=== PATIENT | female | born 1930 | race Caucasian/White ===

== ENCOUNTER → 2017-12-09 | Day surgery (SDC) | payer MEDICARE ==
[2017-12-07 13:48] LABS: BASOPHILS % 0.2 % (0.0-1.0); EOSINOPHILS % 0.6 % (0.0-6.0); HEMATOCRIT 36.4 % (34.2-44.1); HEMOGLOBIN 12.5 g/dL (12.0-16.0); LYMPHOCYTES # (AUTO) 1.3 (1.0-3.2); LYMPHOCYTES % 27.5 % (18.0-39.1); MEAN CORPUSCULAR HEMOGLOBIN 31.3 pg (28-32); MEAN CORPUSCULAR HGB CONC 34.3 g/dL (31-35); MONOCYTES # (AUTO) 0.6 (0.2-0.8); MONOCYTES % 11.5 % (4.4-11.3); NEUTROPHILS # (AUTO) 2.9 (2.1-6.9); PLATELET COUNT 214 x10e3/uL (140-360)
[~2017-12-09] MED LIST: CRESTOR10 MG PO; FENTANYL CITRATE/PF 100MCG/2 ML INJ ONE; HYOSCYAMINE SULFATE 0.5 MG/ML AMP ONE; LEVOTHYROXINE50 MCG PO; LIDOCAINE HCL 2% LOCAL INJ 5 ML SDV VIAL INJ ONE; LOSARTAN PO; PREMARIN0.625 MG PO; PROPOFOL IV EMULSION 10 MG/ML 50 ML VIAL ONE
--- NOTE | 2017-12-09 14:39 | Operative Report ---
DATE OF PROCEDURE: December 09, 2017 REFERRING PHYSICIAN: Dr. Ced Cruz PROCEDURE PERFORMED: Colonoscopy and polypectomy. INDICATIONS FOR COLONOSCOPY: Colorectal cancer screening and change in bowel habits. MEDICATION: Patient was done under MAC. Please see anesthesiologist's note. PROCEDURE: With the patient in the left lateral decubitus position, the flexible fiberoptic Olympus colonoscope was inserted into the rectum with ease and advanced all the way to the cecum. The scope was then withdrawn slowly. Mucosa overlying the cecum, ascending colon, transverse colon, and descending colon appeared to be within normal limits. Diverticular disease with some retained stool was noted in the sigmoid colon. The rectum grossly appeared to be within normal limits. A minute polyp was hot biopsied from the distal rectum. The scope was then retroflexed. Mucosa around the dentate line grossly appeared to be within normal limits. The scope was then straightened out. It was subsequently withdrawn. Patient tolerated the procedure well. IMPRESSION: 1. Diverticulosis. 2. Rectal polyp, hot biopsied. PLAN: Follow up histology. Initiate high-fiber and low-fat diet. Initiate high-fiber supplement. MiraLAX 17 g in a glass of water once daily. No followup colonoscopy is necessary. Job#: [id number] GIANCARLO
== END | disposition home or self-care (01) ==
LOC: ENDO 11:04
PROVIDERS: ATTEND Internal Medicine Gastroenterology
DX: R19.4 Change in bowel habit (principal); R10.32 Left lower quadrant pain; K62.1 Rectal polyp; K57.30 Diverticulosis of large intestine without perforation or abscess without bleeding; I10 Essential (primary) hypertension; E03.9 Hypothyroidism, unspecified; R63.4 Abnormal weight loss; Z68.25 Body mass index [BMI] 25.0-25.9, adult; Z01.810 Encounter for preprocedural cardiovascular examination; Z01.812 Encounter for preprocedural laboratory examination; Z88.1 Allergy status to other antibiotic agents; Z88.5 Allergy status to narcotic agent
CPT/HCPCS: 36415; 45384; 85025; 88305; 93005; J1980; J2001; 45378

== ENCOUNTER 2018-02-27 14:00 | Outpatient (RCR) | payer MEDICARE ==
[~2018-02-27 14:00] MED LIST changes: -FENTANYL CITRATE/PF 100MCG/2 ML INJ ONE; -HYOSCYAMINE SULFATE 0.5 MG/ML AMP ONE; -LIDOCAINE HCL 2% LOCAL INJ 5 ML SDV VIAL INJ ONE; -PROPOFOL IV EMULSION 10 MG/ML 50 ML VIAL ONE
== END 2018-03-14 ==
LOC: PT 14:00
PROVIDERS: ATTEND Specialist
DX: M16.11 Unilateral primary osteoarthritis, right hip (principal); M70.61 Trochanteric bursitis, right hip; M25.551 Pain in right hip; M62.81 Muscle weakness (generalized); R26.2 Difficulty in walking, not elsewhere classified
CPT/HCPCS: 97110; 97161; G8978; G8979

== ENCOUNTER 2018-06-14 11:02 | Emergency (ER) | payer MEDICARE ==
[~2018-06-14] VITALS: Ht 149.9 cm; Wt 61.2 kg
--- OUTSIDE RECORDS SUMMARY | 2018-06-14 11:05 | XMS REPORT | Continuity of Care Document ---
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 Condition 07/18/2014 [facility] LUMBAR RADICULOPATHY Active 07/18/2014 Condition 07/18/2014 [facility] GASTROENTERITIS Inactive 02/08/2014 Condition 07/18/2014 [facility] Group DIZZINESS Active 02/08/2014 Condition 07/18/2014 [facility] SINUSITIS Inactive 01/29/2014 Condition 07/18/2014 Medical Group VERTIGO Active 01/29/2014 Condition 07/18/2014 [facility] Group CHEST PAIN, ATYPICAL Active 10/24/2013 Condition 07/18/2014 [facility] Group BACK PAIN, RIGHT Active 10/24/2013 Condition 07/18/2014 [facility] Group UPPER RESPIRATORY INFECTION Active 07/31/2013 Condition 07/18/2014 [facility] Group HYPERTENSION Active Condition 07/18/2014 [facility] Group HYPOTHYROIDISM Active Condition 07/18/2014 [facility] Group DYSLIPIDEMIA Active Condition 07/18/2014 [facility] Group DM Active Condition 07/18/2014 [facility] Medications Medication Details Route Status Patient Instructions Ordering Provider Order Date Source TRAMADOL HCL 50 MG TABS one q 6 h prn pain Active 07/18/2014 [facility] MELOXICAM 7.5 MG TABS one bid with food Active 07/10/2014 [facility] METHOCARBAMOL 500 MG TABS one bid Active 07/10/2014 [facility] Group FLONASE 50 MCG/ACT SUSP onew puff bid Active 01/29/2014 [facility] PREDNISONE 10 MG TABS 4 tabs x 2 daus 3 tabs x 2 days 2 tab x 2days 1 tab x 2 days. No Longer Active 01/29/2014 [facility] PREDNISONE 10 MG TABS 4 tabs x 2 daus 3 tabs x 2 days 2 tab x 2days 1 tab x 2 days. No Longer Active 01/29/2014 [facility] ASPIRIN 81 MG TABS 1 tablet twice day Active 10/24/2013 [facility] HYZAAR 100-12.5 MG TABS one daily Active 08/16/2013 [facility] Group ASPIRIN 81 MG TABS Active 07/31/2013 [facility] AMOXICILLIN 500 MG TABS one tid No Longer Active 07/31/2013 [facility] Group BENZONATATE 100 MG CAPS one q 6h prn No Longer Active 07/31/2013 [facility] Group ALL DAY ALLERGY 10 MG CAPS one daily. No Longer Active 07/31/2013 [facility] Group AMOXICILLIN 500 MG TABS one tid No Longer Active 07/31/2013 [facility] Group BENZONATATE 100 MG CAPS one q 6h prn No Longer Active 07/31/2013 [facility] Group BENZONATATE 100 MG CAPS one q 6h prn No Longer Active 07/31/2013 [facility] Group ALL DAY ALLERGY 10 MG CAPS one daily. No Longer Active 07/31/2013 [facility] Group METROCREAM 0.75 % CREA localy hs Active 05/01/2013 [facility] SINGULAIR 10 MG TABS TAKE 1 TABLET BY MOUTH DAILY No Longer Active 02/14/2013 [facility] Group HYZAAR 100-12.5 MG TABS one daily Active 02/14/2013 [facility] COZAAR 50 MG TABS TAKE 1 TABLET BY MOUTH DAILY No Longer Active 02/14/2013 [facility] SINGULAIR 10 MG TABS TAKE 1 TABLET BY MOUTH DAILY No Longer Active 02/14/2013 [facility] Group HYZAAR 100-12.5 MG TABS one daily Active 02/14/2013 [facility] COZAAR 50 MG TABS TAKE 1 TABLET BY MOUTH DAILY No Longer Active 02/14/2013 [facility] Group COZAAR 50 MG TABS TAKE 1 TABLET BY MOUTH DAILY No Longer Active 02/14/2013 [facility] Group CALCIUM + D 600-200 MG-UNIT TABS TAKE 1 TABLET BY MOUTH DAILY Active [facility] CRESTOR 5 MG TABS TAKE 1 TABLET BY MOUTH DAILY Active [facility] SYNTHROID 25 MCG TABS TAKE 1 TABLET BY MOUTH DAILY Active [facility] SYNTHROID 25 MCG TABS TAKE 1 TABLET BY MOUTH DAILY Active [facility] SYNTHROID 25 MCG TABS TAKE 1 TABLET BY MOUTH DAILY Active [facility] CRESTOR 5 MG TABS TAKE 1 TABLET BY MOUTH DAILY Active [facility] SYNTHROID 25 MCG TABS TAKE 1 TABLET BY MOUTH DAILY Active [facility] Allergies, Adverse Reactions, Alerts Substance Category Reaction Severity Reaction type Status Date Reported Comments Source KEFLEX Drug allergy KEFLEX 08/01/2013 [facility] CODEINE Drug allergy CODEINE [facility] Immunizations Immunization Date Given Site Status Last Updated Comments Source Results Order Name Results Value Reference Range Date Interpretation Comments Source Chemistry HGBA1C 5.7 % - 5.6 10/24/2013 [facility] Hematology HGB 13.3 g/dL 12.0 - 16.0 10/24/2013 [facility] Hematology HCT 39.8 % 36.0 - 48.0 10/24/2013 [facility] Hematology PLATELETS 201 K/CMM /mm3 133 - 450 10/24/2013 [facility] Chemistry HGBA1C 5.7 % - 5.6 03/26/2013 [facility] Chemistry CHOLESTEROL 190 mg/dl - 199 03/26/2013 [facility] Chemistry TRIGLYCERIDE 147 mg/dl - 149 03/26/2013 [facility] Chemistry HGBA1C 5.7 % - 5.6 03/26/2013 [facility] Chemistry CHOLESTEROL 190 mg/dl - 199 03/26/2013 [facility] Chemistry TRIGLYCERIDE 147 mg/dl - 149 03/26/2013 [facility] Chemistry HDL 68 mg/dl >=61 03/26/2013 [facility] Chemistry LDL 93 mg/dl - 99 03/26/2013 [facility] Chemistry BUN 16 mg/dL 7 - 22 03/26/2013 [facility] Chemistry CREATININE 1.0 mg/dL 0.5 - 1.4 03/26/2013 [facility] Chemistry SODIUM 139 MEQ/L mmol/L 135 - 145 03/26/2013 [facility] Chemistry POTASSIUM 4.3 MEQ/L mmol/L 3.5 - 5.1 03/26/2013 [facility] Chemistry CALCIUM 9.3 mg/dL 8.5 - 10.5 03/26/2013 [facility] Chemistry TSH 3.160 uIU/mL 0.360 - 3.740 03/26/2013 [facility] Chemistry HGBA1C 5.7 % - 5.6 02/15/2013 [facility] Chemistry HGBA1C 5.7 % - 5.6 02/15/2013 [facility] Vital Signs Vital Sign Value Date Comments Source Height 59 07/18/2014 [facility] Temperature Oral (F) 97.9 F 07/18/2014 [facility] Heart Rate 80 07/18/2014 [facility] Weight 135 07/18/2014 [facility] Systolic (mm Hg) 136 07/18/2014 [facility] Diastolic (mm Hg) 70 07/18/2014 [facility] Weight 135 02/08/2014 [facility] Systolic (mm Hg) 122 02/08/2014 [facility] Diastolic (mm Hg) 70 02/08/2014 [facility] Weight 135 01/29/2014 [facility] Temperature Oral (F) 97.5 F 01/29/2014 [facility] Heart Rate 80 01/29/2014 [facility] Systolic (mm Hg) 128 01/29/2014 [facility] Diastolic (mm Hg) 82 01/29/2014 [facility] Weight 136 10/24/2013 [facility] Temperature Oral (F) 96.6 F 10/24/2013 [facility] Heart Rate 72 10/24/2013 [facility] Systolic (mm Hg) 134 10/24/2013 [facility] Diastolic (mm Hg) 80 10/24/2013 [facility] Weight 135 07/31/2013 [facility] Temperature Oral (F) 98.1 F 07/31/2013 [facility] Heart Rate 84 07/31/2013 [facility] Systolic (mm Hg) 130 07/31/2013 [facility] Diastolic (mm Hg) 80 07/31/2013 [facility] Weight 134 03/26/2013 [facility] Temperature Oral (F) 97.5 F 03/26/2013 [facility] Heart Rate 76 03/26/2013 [facility] Systolic (mm Hg) 134 03/26/2013 [facility] Diastolic (mm Hg) 82 03/26/2013 [facility] Height 59 03/26/2013 [facility] Weight 140 02/14/2013 [facility] Heart Rate 77 02/14/2013 [facility] Systolic (mm Hg) 200 02/14/2013 [facility] Diastolic (mm Hg) 90 02/14/2013 [facility] Encounters Location Location Details Encounter Type Encounter Number Reason For Visit Attending Provider ADM Date DC Date Status Source [facility] Lab Report [id number] Dominic Rock MD 02/14/2013 02/14/2013 [facility] [id number] Dominic Rock MD 02/14/2013 02/14/2013 [facility] [place] Office Visit [id number] Dominic Rock MD 03/26/2013 03/26/2013 [facility] [place] Lab Report [id number] Dominic Rock MD 03/26/2013 03/26/2013 [facility] [place] Office Visit [id number] Dominic Rock MD 07/31/2013 07/31/2013 [facility] [place] Office Visit [id number] Dominic Rock MD 10/24/2013 10/24/2013 [facility] [place] Lab Report [id number] Dominic Rock MD 10/24/2013 10/24/2013 [facility] [place] Office Visit [id number] Dominic Rock MD 01/29/2014 01/29/2014 [facility] [place] Office Visit [id number] Dominic Rock MD 02/08/2014 02/08/2014 [facility] [place] Office Visit [id number] Dominic Rock MD 07/18/2014 07/18/2014 [facility] Procedures Procedure Code Date Perfomer Comments Source mammogram 59588 04/15/2013 Complete [facility] mammogram 84679 11/05/2009 Done [facility] mammogram 54158 11/05/2009 Completed [facility] bone density 4002.65 02/07/2008 Done [facility] bone density 4002.65 02/07/[address] [facility]
--- OUTSIDE RECORDS SUMMARY | 2018-06-14 11:05 | XMS REPORT | Continuity of Care Document ---
Author Author [facility] Organization [facility] Address Unknown Phone Unavailable Care Team Providers Care Athletics Teacher Name Role Phone MD Shweta, Dominic Unavailable Insurance Providers Payer name Policy type / Coverage type Policy ID Covered green party ID Policy Reza [place] [employer] AARP HEALTHCARE OPTIONS (MEDICARE SUPPLEMENT [place]: [place] H5 AARP HEALTHCARE OPTIONS (MEDICARE SUPPLEMENT AARP HEALTHCARE OPTIONS (MEDICARE SUPPLEMENT [place] H5 AARP HEALTHCARE OPTIONS (MEDICARE SUPPLEMENT Encounters Encounter Performer Location Date Office Visit Dominic Rock MD [facility] Jul 31, 2013 Allergies, Adverse Reactions, Alerts Type Substance Reaction Status Drug allergy CODEINE VIOLENTLY DIZZY Active Drug allergy KEFLEX Active Problems Problem Effective Dates Problem Status HYPERTENSION Active HYPOTHYROIDISM Active DYSLIPIDEMIA Active DM Active UPPER RESPIRATORY INFECTION Jul 31, 2013 Active Procedures Date Description Comments Feb 07, 2008 bone density Done Nov 05, 2009 mammogram Done Nov 05, 2009 mammogram Completed Feb 07, 2008 bone density Complete std dev Mar 26, 2013 smoking status never smoker Medications Medication Instructions Start Date Status CALCIUM + D 600-200 MG-UNIT TABS TAKE 1 TABLET BY MOUTH DAILY Active CRESTOR 5 MG TABS TAKE 1 TABLET BY MOUTH DAILY Active SYNTHROID 25 MCG TABS TAKE 1 TABLET BY MOUTH DAILY Active SINGULAIR 10 MG TABS TAKE 1 TABLET BY MOUTH DAILY Inactive HYZAAR 100-12.5 MG TABS one daily Feb 14, 2013 Active COZAAR 50 MG TABS TAKE 1 TABLET BY MOUTH DAILY Inactive METROCREAM 0.75 % CREA localy hs May 01, 2013 Active ASPIRIN 81 MG TABS Jul 31, 2013 Active AMOXICILLIN 500 MG TABS one tid Jul 31, 2013 Active BENZONATATE 100 MG CAPS one q 6h prn Jul 31, 2013 Active ALL DAY ALLERGY 10 MG CAPS one daily. Jul 31, 2013 Active Vital Signs Date Description Test Result Feb 14, 2013 weight E&M - 3141-9 WEIGHT 140 lb Feb 14, 2013 pulse rate E&M - 8867-4 PULSE RATE 77 /min Feb 14, 2013 blood pressure, systolic - 8480-6 BP SYSTOLIC 200 mm Hg Feb 14, 2013 blood pressure, diastolic - 8462-4 BP DIASTOLIC 90 mm Hg Mar 26, 2013 weight E&M - 3141-9 WEIGHT 134 lb Mar 26, 2013 temperature E&M TEMPERATURE 97.5 deg f Mar 26, 2013 pulse rate E&M - 8867-4 PULSE RATE 76 /min Mar 26, 2013 blood pressure, systolic - 8480-6 BP SYSTOLIC 134 mm Hg Mar 26, 2013 blood pressure, diastolic - 8462-4 BP DIASTOLIC 82 mm Hg Mar 26, 2013 height E&M - 8302-2 HEIGHT 59 in Jul 31, 2013 weight E&M - 3141-9 WEIGHT 135 lb Jul 31, 2013 temperature E&M TEMPERATURE 98.1 deg f Jul 31, 2013 pulse rate E&M - 8867-4 PULSE RATE 84 /min Jul 31, 2013 blood pressure, systolic - 8480-6 BP SYSTOLIC 130 mm Hg Jul 31, 2013 blood pressure, diastolic - 8462-4 BP DIASTOLIC 80 mm Hg Results Date Description Test Name Value Reference Interpretation Status Feb 14, 2013 hemoglobin A1C, blood, as % of total hemoglobin HGBA1C 5.7 % <=5.6 High Mar 26, 2013 hemoglobin A1C, blood, as % of total hemoglobin HGBA1C 5.7 % <=5.6 High Mar 26, 2013 cholesterol, serum CHOLESTEROL 190 mg/dl <=199 Mar 26, 2013 triglyceride, serum, fasting TRIGLYCERIDE 147 mg/dl <=149 Mar 26, 2013 HDL cholesterol, serum HDL 68 mg/dl >=61 Mar 26, 2013 LDL cholesterol, serum LDL 93 mg/dl <=99 Mar 26, 2013 urea nitrogen, blood BUN 16 mg/dL 7-Mar 26, 2013 creatinine, serum CREATININE 1.0 mg/dL 0.5-1.4 Mar 26, 2013 sodium, serum SODIUM 139 MEQ/L mmol/L 135-145 Mar 26, 2013 potassium, serum POTASSIUM 4.3 MEQ/L mmol/L 3.5-5.1 Mar 26, 2013 calcium, serum CALCIUM 9.3 mg/dL 8.5-10.5 Mar 26, 2013 thyroid stimulating hormone, serum TSH 3.160 uIU/mL 0.360-3.740
--- OUTSIDE RECORDS SUMMARY | 2018-06-14 11:05 | XMS REPORT | Continuity of Care Document ---
Author Author [facility] Organization [facility] Address Unknown Phone Unavailable Care Team Providers Care Fence Installer Name Role Phone MD Shweta, Dominic WHITAKER Unavailable Insurance Providers Payer name Policy type / Coverage type Policy ID Covered libertarian ID Policy Reza [place] SOLUTIONS AARP HEALTHCARE OPTIONS (MEDICARE SUPPLEMENT [place]: [place] AARP HEALTHCARE OPTIONS (MEDICARE SUPPLEMENT AARP HEALTHCARE OPTIONS (MEDICARE SUPPLEMENT [place]: [place] AARP HEALTHCARE OPTIONS (MEDICARE SUPPLEMENT Encounters Encounter Performer Location Date Lab Report Dominic Rock MD [facility] Oct 24, 2013 Allergies, Adverse Reactions, Alerts Type Substance Reaction Status Drug allergy CODEINE VIOLENTLY DIZZY Active Drug allergy KEFLEX Active Problems Problem Effective Dates Problem Status HYPERTENSION Active HYPOTHYROIDISM Active DYSLIPIDEMIA Active DM Active UPPER RESPIRATORY INFECTION Jul 31, 2013 Active CHEST PAIN, ATYPICAL Oct 24, 2013 Active BACK PAIN, RIGHT Oct 24, 2013 Active Procedures Date Description Comments Feb [...] TAKE 1 TABLET BY MOUTH DAILY Inactive COZAAR 50 MG TABS TAKE 1 TABLET BY MOUTH DAILY Inactive METROCREAM 0.75 % CREA localy hs May 01, 2013 Active ALL DAY ALLERGY 10 MG CAPS one daily. Jul 31, 2013 Active HYZAAR 100-12.5 MG TABS one daily Aug 16, 2013 Active AMOXICILLIN 500 MG TABS one tid Jul 31, 2013 Inactive BENZONATATE 100 MG CAPS one q 6h prn Jul 31, 2013 Inactive ASPIRIN 81 MG TABS 1 tablet twice day Oct 24, 2013 Active Vital Signs Date Description Test [...] - 8462-4 BP DIASTOLIC 80 mm Hg Oct 24, 2013 weight E&M - 3141-9 WEIGHT 136 lb Oct 24, 2013 temperature E&M TEMPERATURE 96.6 deg f Oct 24, 2013 pulse rate E&M - 8867-4 PULSE RATE 72 /min Oct 24, 2013 blood pressure, systolic - 8480-6 BP SYSTOLIC 134 mm Hg Oct 24, 2013 blood pressure, diastolic - 8462-4 BP DIASTOLIC 80 mm Hg Results Date Description Test Name Value Reference Interpretation Status Oct 24, 2013 hemoglobin, blood HGB 13.3 g/dL 12.0-16.0 Oct 24, 2013 hematocrit, blood HCT 39.8 % 36.0-48.0 Oct 24, 2013 platelet count PLATELETS 201 K/CMM /mm3 133-450 Feb 14, 2013 hemoglobin A1C, blood, as [...] stimulating hormone, serum TSH 3.160 uIU/mL 0.360-3.740 Oct 24, 2013 hemoglobin A1C, blood, as % of total hemoglobin HGBA1C 5.7 % <=5.6 High
--- OUTSIDE RECORDS SUMMARY | 2018-06-14 11:05 | XMS REPORT | Continuity of Care Document ---
Author Author [facility] Organization [facility] Address Unknown Phone Unavailable Care Team Providers Care [place] Name Role Phone MD Shweta, Dominic Unavailable Insurance Providers Payer name Policy type / Coverage type Policy ID Covered green party ID Policy [place]za [place] [employer]UT[employer] AARP HEALTHCARE OPTIONS (MEDICARE SUPPLEMENT [place]: [place]OVIT[place] [employer] AARP HEALTHCARE OPTIONS (MEDICARE SUPPLEMENT AARP HEALTHCARE OPTIONS (MEDICARE SUPPLEMENT [place]: [place]OVIT[place] [employer] AARP HEALTHCARE OPTIONS (MEDICARE SUPPLEMENT Encounters Encounter Performer Location Date Office Visit Dominic Rock MD [facility] Oct 24, 2013 Allergies, Adverse [...]
--- OUTSIDE RECORDS SUMMARY | 2018-06-14 11:05 | XMS REPORT | Continuity of Care Document ---
Author Author [facility] Organization [facility] Address Unknown Phone Unavailable Care Team Providers Care Wide Area Network Engineer Name Role Phone MD Shweta, Dominic PP Unavailable Insurance Providers Payer name Policy type / Coverage type Policy ID Covered constitution party ID Policy Reza [place]: [place] [employer] AARP HEALTHCARE OPTIONS (MEDICARE SUPPLEMENT [place]: [place]OVITAS [employer] AARP HEALTHCARE OPTIONS (MEDICARE SUPPLEMENT AARP HEALTHCARE OPTIONS (MEDICARE SUPPLEMENT Encounters Encounter Performer Location Date Lab Report Dominic Rock MD [facility] Mar 26, 2013 Allergies, Adverse Reactions, Alerts Type Substance Reaction Status Drug allergy CODEINE VIOLENTLY DIZZY Active Problems Problem Effective Dates Problem Status HYPERTENSION Active HYPOTHYROIDISM Active DYSLIPIDEMIA Active DM Active Procedures Date Description Comments Feb 07, [...] TAKE 1 TABLET BY MOUTH DAILY Inactive Vital Signs Date Description Test Result Feb [...] height E&M - 8302-2 HEIGHT 59 in Results Date Description Test Name Value Reference [...]
--- OUTSIDE RECORDS SUMMARY | 2018-06-14 11:05 | XMS REPORT | Continuity of Care Document ---
Author Author [facility] Organization [facility] Address Unknown Phone Unavailable Care Team Providers Care Operating Theatre Technician Name Role Phone MD Shweta, Dominic Unavailable Insurance Providers Payer name Policy type / Coverage type Policy ID Covered alliance party ID Policy Reza [place] [employer]UT[place] AARP HEALTHCARE OPTIONS (MEDICARE SUPPLEMENT [place]: [place]OVITAS [employer] AARP HEALTHCARE OPTIONS (MEDICARE SUPPLEMENT AARP HEALTHCARE OPTIONS (MEDICARE SUPPLEMENT Encounters Encounter Performer Location Date Office Visit Dominic Rock MD [facility] Mar 26, 2013 Allergies, Adverse Reactions, Alerts [...]
--- OUTSIDE RECORDS SUMMARY | 2018-06-14 11:05 | XMS REPORT | Continuity of Care Document ---
Author Author [facility] Organization [facility] Address Unknown Phone Unavailable Care Team Providers Care Tissue Inserter Name Role Phone MD Shweta, Dominic WHITAKER Unavailable Insurance Providers Payer name Policy type / Coverage type Policy ID Covered green party ID Policy Reza [place] [employer]UT[employer] AARP HEALTHCARE OPTIONS (MEDICARE SUPPLEMENT [place]: [place]OVITAS [employer] AARP HEALTHCARE OPTIONS (MEDICARE SUPPLEMENT AARP HEALTHCARE OPTIONS (MEDICARE SUPPLEMENT MED[place]: [place]OVITAS SergeMD AARP HEALTHCARE OPTIONS (MEDICARE SUPPLEMENT Encounters Encounter Performer Location Date Office Visit Dominic Rock MD [facility] Jan 29, 2014 Allergies, Adverse Reactions, Alerts Type Substance Reaction Status Drug allergy CODEINE VIOLENTLY DIZZY Active Drug allergy KEFLEX Active Problems Problem Effective Dates Problem Status HYPERTENSION Active HYPOTHYROIDISM Active DYSLIPIDEMIA Active DM Active UPPER RESPIRATORY INFECTION Jul 31, 2013 Active CHEST PAIN, ATYPICAL Oct 24, 2013 Active BACK PAIN, RIGHT Oct 24, 2013 Active SINUSITIS Jan 29, 2014 Active VERTIGO Jan 29, 2014 Active Procedures Date Description Comments Feb 07, 2008 bone density Done Nov 05, 2009 mammogram Done Nov 05, 2009 mammogram Completed Feb 07, 2008 bone density Complete std dev Mar 26, 2013 smoking status never smoker Jan 29, 2014 smoking status Never smoker Apr 15, 2013 mammogram Complete Medications Medication Instructions Start Date Status CALCIUM [...] CREA localy hs May 01, 2013 Active HYZAAR 100-12.5 MG TABS one daily Aug 16, 2013 Active AMOXICILLIN 500 MG TABS one tid Jul 31, 2013 Inactive BENZONATATE 100 MG CAPS one q 6h prn Jul 31, 2013 Inactive ASPIRIN 81 MG TABS 1 tablet twice day Oct 24, 2013 Active ALL DAY ALLERGY 10 MG CAPS one daily. Jul 31, 2013 Inactive FLONASE 50 MCG/ACT SUSP onew puff bid Jan 29, 2014 Active PREDNISONE 10 MG TABS 4 tabs x 2 daus 3 tabs x 2 days 2 tab x 2days 1 tab x 2 days. Jan 29, 2014 Active Vital Signs Date Description Test Result Feb 14, 2013 weight E&M WEIGHT 140 lb Feb 14, 2013 pulse rate E&M PULSE RATE 77 /min Feb 14, 2013 blood pressure, systolic BP SYSTOLIC 200 mm Hg Feb 14, 2013 blood pressure, diastolic BP DIASTOLIC 90 mm Hg Mar 26, 2013 weight E&M WEIGHT 134 lb Mar 26, 2013 temperature E&M TEMPERATURE 97.5 deg f Mar 26, 2013 pulse rate E&M PULSE RATE 76 /min Mar 26, 2013 blood pressure, systolic BP SYSTOLIC 134 mm Hg Mar 26, 2013 blood pressure, diastolic BP DIASTOLIC 82 mm Hg Mar 26, 2013 height E&M HEIGHT 59 in Jul 31, 2013 weight E&M WEIGHT 135 lb Jul 31, 2013 temperature E&M TEMPERATURE 98.1 deg f Jul 31, 2013 pulse rate E&M PULSE RATE 84 /min Jul 31, 2013 blood pressure, systolic BP SYSTOLIC 130 mm Hg Jul 31, 2013 blood pressure, diastolic BP DIASTOLIC 80 mm Hg Oct 24, 2013 weight E&M WEIGHT 136 lb Oct 24, 2013 temperature E&M TEMPERATURE 96.6 deg f Oct 24, 2013 pulse rate E&M PULSE RATE 72 /min Oct 24, 2013 blood pressure, systolic BP SYSTOLIC 134 mm Hg Oct 24, 2013 blood pressure, diastolic BP DIASTOLIC 80 mm Hg Jan 29, 2014 weight E&M WEIGHT 135 lb Jan 29, 2014 temperature E&M TEMPERATURE 97.5 deg f Jan 29, 2014 pulse rate E&M PULSE RATE 80 /min Jan 29, 2014 blood pressure, systolic BP SYSTOLIC 128 mm Hg Jan 29, 2014 blood pressure, diastolic BP DIASTOLIC 82 mm Hg Results Date Description Test Name [...] 2013 urea nitrogen, blood BUN 16 mg/dL 7-22 Mar 26, 2013 creatinine, serum CREATININE 1.0 mg/dL [...]
--- OUTSIDE RECORDS SUMMARY | 2018-06-14 11:05 | XMS REPORT | Continuity of Care Document ---
Author Author [facility] Organization [facility] Address Unknown Phone Unavailable Care Team Providers Care Supervisor Pressing Department Name Role Phone MD Shweta, Dominic WHITAKER Unavailable Insurance Providers Payer name Policy type / Coverage type Policy ID Covered alliance party ID Policy Reza [place] [employer] AARP HEALTHCARE OPTIONS (MEDICARE SUPPLEMENT [place]: [place]OV[place] [employer] AARP HEALTHCARE OPTIONS (MEDICARE SUPPLEMENT AARP HEALTHCARE OPTIONS (MEDICARE SUPPLEMENT [place]: [employer] AARP HEALTHCARE OPTIONS (MEDICARE SUPPLEMENT Encounters Encounter Performer Location Date Office Visit Dominic Rock MD [facility] Feb 08, 2014 Allergies, Adverse Reactions, Alerts Type Substance [...] 2014 Active VERTIGO Jan 29, 2014 Active GASTROENTERITIS Feb 08, 2014 Active DIZZINESS Feb 08, 2014 Active Procedures Date Description Comments Feb 07, 2008 bone density Done Nov 05, 2009 mammogram Done Nov 05, 2009 mammogram Completed Feb 07, 2008 bone density Complete std dev Mar 26, 2013 smoking status never smoker Jan 29, 2014 smoking status Never smoker Apr 15, 2013 mammogram Complete Feb 08, 2014 smoking status Never smoker Medications Medication Instructions Start Date Status [...] tab x 2 days. Jan 29, 2014 Inactive Vital Signs Date Description Test Result [...] pressure, diastolic BP DIASTOLIC 82 mm Hg Feb 08, 2014 weight E&M WEIGHT 135 lb Feb 08, 2014 blood pressure, systolic BP SYSTOLIC 122 mm Hg Feb 08, 2014 blood pressure, diastolic BP DIASTOLIC 70 mm Hg Results Date Description Test Name [...]
--- OUTSIDE RECORDS SUMMARY | 2018-06-14 11:05 | XMS REPORT | Continuity of Care Document ---
Author Author [facility] Organization [facility] Address Unknown Phone Unavailable Care Team Providers Care Truck Spotter Name Role Phone MD Shweta, Dominic WHITAKER Unavailable Insurance Providers Payer name Policy type / Coverage type Policy ID Covered democrat ID Policy Rzea [place] [employer] AARP HEALTHCARE OPTIONS (MEDICARE SUPPLEMENT [place]: [place] [employer] AARP HEALTHCARE OPTIONS (MEDICARE SUPPLEMENT AARP HEALTHCARE OPTIONS (MEDICARE SUPPLEMENT [place] AARP HEALTHCARE OPTIONS (MEDICARE SUPPLEMENT Encounters Encounter Performer Location Date Office Visit Dominic Rock MD [facility] Jul 18, 2014 Allergies, Adverse Reactions, Alerts Type Substance Reaction Status Drug allergy CODEINE VIOLENTLY DIZZY Active Drug allergy KEFLEX Active Problems Problem Effective Dates Problem Status HYPERTENSION Active HYPOTHYROIDISM Active DYSLIPIDEMIA Active DM Active UPPER RESPIRATORY INFECTION Jul 31, 2013 Active CHEST PAIN, ATYPICAL Oct 24, 2013 Active BACK PAIN, RIGHT Oct 24, 2013 Active SINUSITIS Jan 29, 2014 Inactive VERTIGO Jan 29, 2014 Active GASTROENTERITIS Feb 08, 2014 Inactive DIZZINESS Feb 08, 2014 Active SCIATICA, 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 Jan 29, 2014 Inactive MELOXICAM 7.5 MG TABS one bid with food Jul 10, 2014 Active METHOCARBAMOL 500 MG TABS one bid Jul 10, 2014 Active TRAMADOL HCL 50 MG TABS one q 6 h prn pain Jul 18, 2014 Active Vital Signs Date Description Test [...] - 8462-4 BP DIASTOLIC 80 mm Hg Jan 29, 2014 weight E&M - 3141-9 WEIGHT 135 lb Jan 29, 2014 temperature E&M TEMPERATURE 97.5 deg f Jan 29, 2014 pulse rate E&M - 8867-4 PULSE RATE 80 /min Jan 29, 2014 blood pressure, systolic - 8480-6 BP SYSTOLIC 128 mm Hg Jan 29, 2014 blood pressure, diastolic - 8462-4 BP DIASTOLIC 82 mm Hg Feb 08, 2014 weight E&M - 3141-9 WEIGHT 135 lb Feb 08, 2014 blood pressure, systolic - 8480-6 BP SYSTOLIC 122 mm Hg Feb 08, 2014 blood pressure, diastolic - 8462-4 BP DIASTOLIC 70 mm Hg Jul 18, 2014 height E&M - 8302-2 HEIGHT 59 in Jul 18, 2014 temperature E&M TEMPERATURE 97.9 deg f Jul 18, 2014 pulse rate E&M - 8867-4 PULSE RATE 80 /min Jul 18, 2014 weight E&M - 3141-9 WEIGHT 135 lb Jul 18, 2014 blood pressure, systolic - 8480-6 BP SYSTOLIC 136 mm Hg Jul 18, 2014 blood pressure, diastolic - 8462-4 BP DIASTOLIC 70 mm Hg Results Date [...]
--- OUTSIDE RECORDS SUMMARY | 2018-06-14 11:05 | XMS REPORT | Continuity of Care Document ---
Author Author [facility] Organization [facility] Address Unknown Phone Unavailable Care Team Providers Care Bridge Repairer Name Role Phone MD Shweta, Dominic WHITAKER Unavailable Insurance Providers Payer name Policy type / Coverage type Policy ID Covered libertarian ID Policy Reza [place] [employer] AARP HEALTHCARE OPTIONS (MEDICARE SUPPLEMENT Encounters Encounter Performer Location Date Office Visit Domniic Rock MD [facility] Feb 14, 2013 Allergies, Adverse Reactions, Alerts Type Substance Reaction Status Drug allergy CODEINE VIOLENTLY DIZZY Active Problems Problem Effective Dates Problem Status HYPERTENSION Active HYPOTHYROIDISM Active DYSLIPIDEMIA Active DM Active Procedures Date Description Comments Feb 07, 2008 bone density Done Nov 05, 2009 mammogram Done Nov 05, 2009 mammogram Completed Feb 07, 2008 bone density Complete std dev Medications Medication Instructions Start Date Status CALCIUM [...] - 8462-4 BP DIASTOLIC 90 mm Hg Results Date Description Test Name Value Reference Interpretation Status Feb 14, 2013 hemoglobin A1C, blood, as % of total hemoglobin HGBA1C 5.7 % <=5.6 High
--- OUTSIDE RECORDS SUMMARY | 2018-06-14 11:05 | XMS REPORT | Continuity of Care Document ---
Author Author [facility] Organization [facility] Address Unknown Phone Unavailable Care Team Providers Care Front Window Cashier Name Role Phone MD Shweta, Dominic WHITAKER Unavailable Insurance Providers Payer name Policy type / Coverage type Policy ID Covered libertarian ID Policy Reza [place] [id number] AARP HEALTHCARE OPTIONS (MEDICARE SUPPLEMENT Encounters Encounter Performer Location Date Lab Report Dominic Rock MD [facility] Feb 14, 2013 Allergies, Adverse Reactions, Alerts [...]
[2018-06-14 11:51] VITALS: BP 151/78
== END 2018-06-14 11:58 | disposition home or self-care (01) ==
LOC: FSED 11:02
DX: R10.30 Lower abdominal pain, unspecified (principal); N39.0 Urinary tract infection, site not specified; I10 Essential (primary) hypertension; E78.5 Hyperlipidemia, unspecified; E03.9 Hypothyroidism, unspecified
CPT/HCPCS: 87086; 99283

== ENCOUNTER 2018-06-27 15:06 | Emergency (ER) | payer MEDICARE, OTHER ==
[~2018-06-27] VITALS: Ht 149.9 cm; Wt 59.0 kg
--- OUTSIDE RECORDS SUMMARY | 2018-06-27 15:11 | XMS REPORT | Continuity of Care Document ---
Author Author [facility] Address Unknown Phone Unavailable Problems Problem [...] TABS one daily Active 08/16/2013 [facility] AMOXICILLIN 500 MG TABS one tid No Longer Active 07/31/2013 [facility] BENZONATATE 100 MG CAPS one q 6h prn No Longer Active 07/31/2013 [facility] ALL DAY ALLERGY 10 MG CAPS one daily. No Longer Active 07/31/2013 [facility] ASPIRIN 81 MG TABS Active [...] Medical Group CODEINE Drug allergy CODEINE [facility] Immunizations Immunization Date Given Site Status Last Updated Comments Source Results Order Name Results Value Reference Range Date Interpretation Comments Source Chemistry HGBA1C 5.7 % - 5.6 10/24/2013 [facility] Hematology HGB 13.3 g/dL 12.0 - 16.0 10/24/2013 Medical [facility] Hematology HCT 39.8 % 36.0 - 48.0 10/24/2013 [facility] Hematology PLATELETS 201 K/CMM /mm3 133 - 450 10/24/2013 [facility] Chemistry HGBA1C 5.7 % - 5.6 03/26/2013 [facility] Chemistry CHOLESTEROL 190 mg/dl - 199 03/26/2013 [facility] Chemistry TRIGLYCERIDE 147 mg/dl - 149 03/26/2013 Medical [facility] Chemistry HDL 68 mg/dl >=61 03/26/2013 [facility] Chemistry LDL 93 mg/dl - 99 03/26/2013 [facility] Chemistry BUN 16 mg/dL 7 - 22 03/26/2013 [facility] Chemistry CREATININE 1.0 mg/dL 0.5 - 1.4 03/26/2013 [facility] Chemistry SODIUM 139 MEQ/L mmol/L 135 - 145 03/26/2013 [facility] Chemistry POTASSIUM 4.3 MEQ/L mmol/L 3.5 - 5.1 03/26/2013 [facility] Chemistry CALCIUM 9.3 mg/dL 8.5 - 10.5 03/26/2013 Medical [facility] Chemistry TSH 3.160 uIU/mL 0.360 - 3.740 03/26/2013 Medical [facility] Chemistry HGBA1C 5.7 % - 5.6 03/26/2013 [facility] Chemistry CHOLESTEROL 190 mg/dl - 199 03/26/2013 [facility] Chemistry TRIGLYCERIDE 147 mg/dl - 149 03/26/2013 Medical [facility] Chemistry HGBA1C 5.7 % - 5.6 02/15/2013 [facility] Chemistry HGBA1C 5.7 % - 5.6 02/15/2013 Medical [facility] Vital Signs Vital Sign Value Date Comments Source Height 59 07/18/2014 Medical [facility] Temperature Oral (F) 97.9 F 07/18/2014 [facility] Heart Rate 80 07/18/2014 Medical Group Weight 135 07/18/2014 Medical [facility] Systolic (mm Hg) 136 07/18/2014 Medical Group [...] Provider ADM Date DC Date Status Source [facility] Lab Report [id number] Dominic Rock MD 02/14/2013 02/14/2013 [facility] [id number] Dominic Rock MD 02/14/2013 02/14/2013 Medical Group [facility] [place] Office Visit [id number] Dominic Rock MD 03/26/2013 03/26/2013 [facility] [place] Lab Report [id number] Dominic Rock MD 03/26/2013 03/26/2013 [facility] [place] Office Visit [id number] Dominic Rock MD 07/31/2013 07/31/2013 [facility] [place] Office Visit [id number] Dominic Rock MD 10/24/2013 10/24/2013 [facility] [place] Lab Report [id number] Dominic Rock MD 10/24/2013 10/24/2013 [facility] [place] Office Visit [id number] Dominic Rock MD 01/29/2014 01/29/2014 [facility] [place] Office Visit [id number] Dominic Rock MD 02/08/2014 02/08/2014 [facility] [place] Office Visit [id number] Dominic Rock MD 07/18/2014 07/18/2014 [facility] Procedures Procedure Code Date Perfomer Comments Source mammogram 45189 04/15/2013 Complete Medical [facility] mammogram 54857 11/05/2009 Done [facility] mammogram 35854 11/05/2009 Completed [facility] bone density 4002.65 02/07/2008 Done [facility] bone density 4002.65 02/07/[address] dev [facility]
[2018-06-27 15:35] VITALS: BP 142/71
== END 2018-06-27 16:00 | disposition home or self-care (01) ==
LOC: FSED 15:06
DX: R35.0 Frequency of micturition (principal)
CPT/HCPCS: 81003; 99282

== ENCOUNTER 2020-05-20 09:17 | Observation (INO) | payer MEDICARE, OTHER ==
[2020-05-19 20:00] VITALS: BP 133/53
[~2020-05-20] VITALS: Ht 149.9 cm; Wt 61.2 kg
[~2020-05-20 09:17] MED LIST changes: +ASPIRIN81 MG PO; +BUPIVACAINE 7.5MG/ML /DEXTROSE 82.5MG/ML 2 ML AMP INJ ONE; +LOSARTAN/HCTZ PO; +ROPIVACAINE 246.25 MG, EPINEPHRINE HCL 1:1000 1ML 0.5 MG, CLONIDINE HCL 0.08 MG, KETORO... INJ ONE
[2020-05-20] MEDS ORDERED: DEXAMETHASONE SOD PHOS INJ 4 MG/ML VIAL ONE (09:50)
[2020-05-20] MEDS ORDERED: CELECOXIB 200 MG CAP ONE (09:50)
[2020-05-20] MEDS ORDERED: GABAPENTIN 300 MG CAP ONE (09:51)
[2020-05-20] MEDS ORDERED: CLINDAMYCIN PHOS 900MG/ 50ML 50 ML IV ONE (09:51)
[2020-05-20] MEDS ORDERED: TRANEXAMIC ACID 1,000 MG/10 ML ML ONE (09:57)
[2020-05-20] MEDS ORDERED: VANCOMYCIN HCL 1,000 MG ONE (09:57)
[2020-05-20] MEDS ORDERED: SODIUM CHLORIDE 0.9% 500ML 500 ML ONE (09:57)
[2020-05-20] MEDS ORDERED: HYDROCODONE/APAP 7.5MG-325MG 1 EA TAB PO PRN (11:45)
[2020-05-20] MEDS ORDERED: ONDANSETRON HCL INJ 2MG/ML 2ML 2 MG/ML VIAL IV PRN (11:45)
[2020-05-20] MEDS ORDERED: DIPHENHYDRAMINE HCL INJ 50 MG/ML VIAL IV PRN (11:45)
[2020-05-20] MEDS ORDERED: SODIUM CHLORIDE 0.9% 1000ML 1,000 ML IV SCH (11:45)
[2020-05-20] MEDS ORDERED: DOCUSATE SODIUM 100 MG CAP PO PRN (11:45)
[2020-05-20] MEDS ORDERED: KETOROLAC TROMETHAMINE 30 MG/ML VIAL IV PRN (11:45)
[2020-05-20] MEDS ORDERED: ACETAMINOPHEN 650 MG SUPP PR PRN (11:45)
--- OUTSIDE RECORDS SUMMARY | 2020-05-20 12:32 | XMS REPORT | Continuity of Care Document ---
Author Author [facility] Address Unknown Phone Unavailable Care Team Providers Care Health Technical Writer Name Role Phone [email or web address] Unavailable Un available Problems Problem Status Onset Date Classification Date [...] Condition 07/18/2014 Medical Group UPPER RESPIRATORY INFECTION Ac tive 07/31/2013 Condition 07/18/2014 Medical Group HYPERTENSION Active [...] Medical Group FLONASE 50 MCG/ACT SUSP onew p uff bid Active 01/29/2014 [facility] Group PREDNISONE 10 [...] Group ASPIRIN 81 MG TABS 1 tablet tw day Active 10/24/2013 [facility] Group HYZAAR 100-12.5 MG TABS one da garcai Active 08/16/2013 [facility] ALL DAY ALLERGY 10 MG CAPS one daily. No Longer Active 07/31/2013 [facility] AMOXICILLIN 500 MG TABS one tid No Longer Active 07/31/2013 [facility] BENZONATATE 100 MG CAPS one q 6h prn No Longer Active 07/31/2013 Medical Group ASPIRIN [...] Group SINGULAIR 10 MG TABS TAKE 1 TA BLET BY MOUTH DAILY No Longer Active 02/14/2013 [facility] Group HYZAAR 100-12.5 MG TABS one da garcia Active 02/14/2013 [facility] COZAAR 50 MG TABS TAKE 1 TABLE T BY MOUTH DAILY No Longer Active 02/14/2013 [facility] SINGULAIR 10 MG TABS TAKE 1 TA BLET BY MOUTH DAILY No Longer Active 02/14/2013 [facility] COZAAR 50 MG TABS TAKE 1 TABLE T BY MOUTH DAILY No Longer Active 02/14/2013 [facility] HYZAAR 100-12.5 MG TABS one da garcia Active 02/14/2013 [facility] COZAAR 50 MG TABS TAKE 1 TABLE T BY MOUTH DAILY No Longer Active 02/14/2013 Medical Group CALCIUM + D 600-200 MG-UNIT TABS TAKE 1 TABLET BY MOUTH DAILY Active [facility] CRESTOR 5 MG TABS TAKE 1 TABLE T BY MOUTH DAILY Active [facility] SYNTHROID 25 MCG TABS TAKE 1 T ABLET BY MOUTH DAILY Active [facility] SYNTHROID 25 MCG TABS TAKE 1 T ABLET BY MOUTH DAILY Active [facility] SYNTHROID 25 MCG TABS TAKE 1 T ABLET BY MOUTH DAILY Active [facility] CRESTOR 5 MG TABS TAKE 1 TABLE T BY MOUTH DAILY Active [facility] SYNTHROID 25 MCG TABS TAKE 1 T ABLET BY MOUTH DAILY Active [facility] Allergies, Adverse Reactions, Alerts Substance Category Reaction Severity Reaction type Status Date Reported Comments Source KEFLEX Drug allergy KEFLEX 08/01/2013 Medical [facility] CODEINE Drug allergy CODEINE [facility] Immunizations No Data Provided for This Section Results Order Name Results Value Reference Range Date Interpretation Comments Source Chemistry HGBA1C 5.7 - 5.6 10/24/2013 Medical [facility] Hematology HGB 13.3 12.0 - 16.0 10/24/2013 [facility] Hematology HCT 39.8 36.0 - 48.0 10/24/2013 [facility] Hematology PLATELETS 201 K/CMM 133 - 450 10/24/2013 [facility] Chemistry HGBA1C 5.7 - 5.6 03/26/2013 [facility] Chemistry CHOLESTEROL 190 - 199 03/26/2013 [facility] Chemistry TRIGLYCERIDE 147 - 149 03/26/2013 [facility] Chemistry HGBA1C 5.7 - 5.6 03/26/2013 [facility] Chemistry CHOLESTEROL 190 - 199 03/26/2013 [facility] Chemistry TRIGLYCERIDE 147 - 149 03/26/2013 [facility] Chemistry HDL 68 >=61 03/26/2013 [facility] Chemistry LDL 93 - 99 03/26/2013 [facility] Chemistry BUN 16 7 - 22 03/26/2013 [facility] Chemistry CREATININE 1.0 0.5 - 1.4 03/26/2013 [facility] Chemistry SODIUM 139 MEQ/L 135 - 145 03/26/2013 [facility] Chemistry POTASSIUM 4.3 MEQ/L 3.5 - 5.1 03/26/2013 [facility] Chemistry CALCIUM 9.3 8.5 - 10.5 03/26/2013 [facility] Chemistry TSH 3.160 0.360 - 3.740 03/26/2013 [facility] Chemistry HGBA1C 5.7 - 5.6 02/15/2013 Medical [facility] Chemistry HGBA1C 5.7 - 5.6 02/15/2013 [facility] Pathology Reports No Data Provided for This Section Diagnostic Reports No Data Provided for This Section Consultation Notes No Data Provided for This Section Discharge Summaries No Data Provided for This Section History and Physicals No Data Provided for This Section Vital Signs Vital Sign Value Date Comments Source Height 59 1 09/18/2013 [facility] Temperature Oral (F) 97.9 F 07/18/2014 [facility] Group Heart Rate 80 07/18/2014 [facility] Weight 135 07/18/2014 [facility] Systolic (mm Hg) 136 07/18/2014 [facility] Diastolic (mm Hg) 70 07/18/2014 [...] Medical Group Systolic (mm Hg) 134 10/24/2013 [facility] Diastolic (mm Hg) 80 10/24/2013 [facility] Weight 135 07/31/2013 [facility] Temperature Oral (F) 98.1 F 07/31/2013 [facility] Heart Rate 84 07/31/2013 [facility] Systolic (mm Hg) 130 07/31/2013 [facility] Diastolic (mm Hg) 80 07/31/2013 [facility] Weight 134 03/26/2013 [facility] Temperature Oral (F) 97.5 F 03/26/2013 [facility] Heart Rate 76 03/26/2013 [facility] Systolic (mm Hg) 134 03/26/2013 [facility] Diastolic (mm Hg) 82 03/26/2013 [facility] Height 59 0 03/26/2013 [facility] Weight 140 02/14/2013 [facility] Heart Rate 77 02/14/2013 [facility] Systolic (mm Hg) 200 02/14/2013 [facility] Diastolic (mm Hg) 90 02/14/2013 [facility] Encounters Location Location Details Encounter Type Encounter Number Reason For Visit Attending Provider ADM Date DC Date Status Source [facility] Lab Report [id number] Dominic Rock MD 02/14/2013 02/14/2013 Medical Group [facility] Office Visit [id number] Dominic Rock MD 02/14/2013 02/14/2013 [facility] [place] Lab Report [id number] Dominic Rock MD 03/26/2013 03/26/2013 [facility] [place] Office Visit [id number] Dominic Rock MD 03/26/2013 03/26/2013 [facility] [place] Office Visit [id number] Dominic Rock MD 07/31/2013 07/31/2013 [facility] [place] Lab Report [id number] Dominic Rock MD 10/24/2013 10/24/2013 [facility] [place] Office Visit [id number] Dominic Rock MD 10/24/2013 10/24/2013 [facility] [place] Office Visit [id number] Dominic Rock MD 01/29/2014 01/29/2014 [facility] [place] Office Visit [id number] Dominic Rock MD 02/08/2014 02/08/2014 [facility] [place] Office Visit [id number] Dominic Rock MD 07/18/2014 07/18/2014 [facility] Procedures Procedure Code Date Perfomer Comments Source mammogram 53692 11/05/2009 Done [facility] bone density 4002.65 02/07/2008 Done [facility] Assessment and Plan No Data Provided for This Section Plan of Care No Data Provided for This Section Social History No Data Provided for This Section Family History No Data Provided for This Section Advance Directives No Data Provided for This Section Functional Status No Data Provided for This Section
--- OUTSIDE RECORDS SUMMARY | 2020-05-20 12:32 | XMS REPORT | Continuity of Care Document ---
Author Author [facility] t Organization [facility] Address [address] [place] [address] Phone Unavailable Care Team Providers Care Press Machine Feeder Name Role Phone NONSTAFF PCP Unavailable EFRA YOON APRN Attphys Unavailable ASHLEY MORRISON M.D. Attphys Unavailable JENNIE MEJIA APRN Attphys Unavailable xxxJENNIE Mcfarland APRN Attphys Unavailabl e Payers Payer Name Policy Type Policy Number Effective Date Expiration Date [place] [facility] [place] [id number] 2017 00:00:00 [facility] AARP [id number] 2017 00:00:00 [facility] Problems Condition Name Condition Details Condition Category Status Onset Date Resolution Date Last Treatment Date Treating Clinician Comments Source SCIATICA, LEFT SCIA SOWMYA, LEFT Active 07/18/2014 Condition 07/18/2014 Medical Group Condition Active 2014-07-18 00:00:00 2014-07-18 14:04:42 [facility] LUMBAR RADICULOPATHY LUMB AR RADICULOPATHY Active 07/18/2014 Condition 07/18/2014 Medical Group Condition Active 2014-07-18 00:00:00 2014-07-18 14:04:42 [facility] DIZZINESS DIZZ INESS Active 02/08/2014 Condition 07/18/2014 Medical Group Condition Active 2014-02-08 00:00:00 2014-07-18 14:04:4 2 [facility] VERTIGO VERT IGO Active 01/29/2014 Condition 07/18/2014 Medical Group Condition Active 2014-01-29 00:00:00 2014-07-18 14:04:42 [facility] CHEST PAIN, ATYPICAL CHES T PAIN, ATYPICAL Active 10/24/2013 Condition 07/18/2014 Medical Group Condition Active 2013-10-24 00:00:00 2014-07-18 14:04:42 Vaughn Paigeann BACK PAIN, RIGHT BACK PAIN, RIGHT Active 10/24/2013 Condition 07/18/2014 Medical Group Condition Active 2013-10-24 00:00:00 2014-07-18 14:04:42 Vaughn Paigeann UPPER RESPIRATORY INFECTION UP PER RESPIRATORY INFECTION Active 07/31/2013 Condition 07/18/2014 Medical Group Condition Active 2013-07-31 00:00:00 2014-07-18 14:04:42 Vaughn Eric Hematuria Hematuria Problem Active [facility] History of hyperlipidemia History of hyperlipidemia Problem Resolved [facility] History of hypertension History of hypertension Problem Resolved [facility] Encounter to establish care Encounter to establish care Problem Active [facility] Allergic rhinitis due to pollen Allergic rhinitis due to pollen Pro blem Active [facility] Clicking neck Clicking neck Problem Active [facility] Generalized osteoarthritis of multiple sites Generaliz ed osteoarthritis of multiple sites [facility] Bunion Bunion Problem Active [facility] Sciatic radiculitis Sciatic radiculitis Problem Active [facility] Sacroiliac joint pain Sacroiliac joint pain Problem Active [facility] Climacteric syndrome Climacteric syndrome Problem Active [facility] Hammer toes of both feet Hammer toes of both feet Problem Active [facility] Hypothyroidism due to acquired atrophy of thyroid Hypo thyroidism due to acquired atrophy of thyroid Problem Active [facility] Hyperlipemia, mixed Hyperlipemia, mixed Problem Active [facility] HTN (hypertension), benign HTN (hypertension), benign Problem Active [facility] Right hip pain Right hip pain Problem Active [facility] Dry skin dermatitis Dry skin dermatitis Problem Active [facility] Rosacea Rosacea Problem Active [facility] Avascular necrosis Avascular necrosis Problem Active [facility] Greater trochanteric bursitis of right hip Greater tro chanteric bursitis of right hip Problem Active [facility] Breast cancer screening Breast cancer screening Problem Active [facility] Preop examination Preop examination Problem Active [facility] Elevated blood sugar Elevated blood sugar Problem Active [facility] Function kidney decreased Function kidney decreased Problem Active [facility] Abnormal urine cytology Abnormal urine cytology Problem Active [facility] HYPERTENSION HYPE RTENSION Active Condition 07/18/2014 Medical Group Condition Active 2014-07-18 14:04:42 [facility] HYPOTHYROIDISM HYPO THYROIDISM Active Condition 07/18/2014 Medical Group Condition Active 2014-07-18 14:04:42 [facility] DYSLIPIDEMIA DYSL IPIDEMIA Active Condition 07/18/2014 Medical Group Condition Active 2014-07-18 14:04:42 [facility] DM DM Active Condition 07/18/2014 Medical Group Condition Active 2014-07-18 14:04:42 [facility] History of Past Illness Condition Name Condition Details Condition Category Status Onset Date Resolution Date Last Treatment Date Treating Clinician Comments Source GASTROENTERITIS FILEMON ROENTERITIS Inactive 02/08/2014 Condition 07/18/2014 Medical Group Condition Inactive 2014-02-08 00: 00:00 2014-07-18 14:04:42 2014-07-18 14:04:42 [facility] SINUSITIS SINU SITIS Inactive 01/29/2014 Condition 07/18/2014 Medical Group Condition Inactive 2014-01-29 00:00:00 2014-07-18 14:04 :42 2014-07-18 14:04:42 [facility] Allergies, Adverse Reactions, Alerts Allergy Name Allergy Type Status Severity Reaction(s) Onset Date Inacti ve Date Treating Clinician Comments Source Codeine Propensity to adverse reactions Active Mild Naus eated 2015-10-18 00:00:00 [facility] Oxycodone Propensity to adverse reactions Active Mild Naus ea, dizziness 2015-10-18 00:00:00 [facility] Acetaminophen Propensity to adverse reactions Active Mild N ausea, dizziness 2015-10-18 00:00:00 [facility] Cephalexin Allergy to Substance Active Mild Nauseated, dizz iness 2015-10-18 00:00:00 [facility] KEFLEX KEFLEX Active 2013-08-01 00:00:00 [facility] Codeine Derivatives Allergy to drug (finding) Active [facility] Ceftin Allergy to drug (finding) Active [facility] CODEINE [facility]INE [facility] Family Member Diagnosis Comments Start Date Stop Date Source Sibling Family history of diabetes mellitus [facility] Social History Smoking Status Start Date Stop Date Source Never smoked tobacco (finding) [facility] Medications Ordered Medication Name Filled Medication Name Start Date Stop Da te Current Medication? Ordering Clinician Indication Dosage Frequency Signature (SIG) Comments Components Source metroNIDAZOLE 0.75 % External Cream metroNIDAZOLE 0.75 % Ext ernal Cream 2020-01-28 00:00:00 Yes EFRA YOON APRN QD APPLY AND GENTLY MASSAGE INTO AFFECTED AREA(S) ONCE DAILY. [facility] Levothyroxine Sodium 25 MCG Oral Tablet Levothyroxine Sodium 25 MCG Oral Tablet 2019-04-10 00:00:00 Yes EFRA YOON APRN 1 QD TAKE 1 TA BLET DAILY. [facility] Rosuvastatin Calcium 5 MG Oral Tablet Rosuvastatin Calcium 5 MG Oral Tablet 2019-04-10 00:00:00 Yes EFRA YOON APRN TAKE 1 TABLET BY MOUTH DAILY AT BEDTIME. [facility] Losartan Potassium-HCTZ 100-12.5 MG Oral Tablet Losart an Potassium-HCTZ 100-12.5 MG Oral Tablet 2019-04-10 00:00:00 Yes EFRA YOON APRN 1 QD TAKE 1 TABLET DAILY. [facility] CALCIUM + D 600-200 MG-UNIT TABS 2014-07-18 14:04:42 Yes TAKE 1 TABLET BY MOUTH DAILY [facility] CRESTOR 5 MG TABS 2014-07-18 14:04:42 Yes TAKE 1 TABLET BY MOUTH DAILY [facility] SYNTHROID 25 MCG TABS 2014-07-18 14:04:42 Yes TAKE 1 TABLET BY MOUTH DAILY [facility] TRAMADOL HCL 50 MG TABS 2014-07-18 00:00:00 Yes one q 6 h prn pain [facility] MELOXICAM 7.5 MG TABS 2014-07-10 00:00:00 Yes one bid with food Vaughn Reyes METHOCARBAMOL 500 MG TABS 2014-07-10 00:00:00 Yes one bid [facility] CRESTOR 5 MG TABS 2014-02-08 10:19:11 Yes TAKE 1 TABLET BY MOUTH DAILY [facility] SYNTHROID 25 MCG TABS 2014-02-08 10:19:11 Yes TAKE 1 TABLET BY MOUTH DAILY [facility] FLONASE 50 MCG/ACT SUSP 2014-01-29 00:00:00 Yes onew puff bid [facility] PREDNISONE 10 MG TABS 2014-01-29 00:00:00 No 4 tabs x 2 daus 3 tabs x 2 days 2 tab x 2days 1 tab x 2 days. [facility] PREDNISONE 10 MG TABS 2014-01-29 00:00:00 No 4 tabs x 2 daus 3 tabs x 2 days 2 tab x 2days 1 tab x 2 days. [facility] SYNTHROID 25 MCG TABS 2013-10-24 11:10:00 Yes TAKE 1 TABLET BY MOUTH DAILY [facility] ASPIRIN 81 MG TABS 2013-10-24 00:00:00 Yes 1 tablet twice day [facility] HYZAAR 100-12.5 MG TABS 2013-08-16 00:00:00 Yes one daily [facility] ALL DAY ALLERGY 10 MG CAPS 2013-07-31 00:00:00 No one daily. [facility] AMOXICILLIN 500 MG TABS 2013-07-31 00:00:00 No one tid [facility] BENZONATATE 100 MG CAPS 2013-07-31 00:00:00 No one q 6h prn [facility] ASPIRIN 81 MG TABS 2013-07-31 00:00:00 Yes [facility] AMOXICILLIN 500 MG TABS 2013-07-31 00:00:00 No one tid [facility] BENZONATATE 100 MG CAPS 2013-07-31 00:00:00 No one q 6h prn [facility] BENZONATATE 100 MG CAPS 2013-07-31 00:00:00 No one q 6h prn [facility] ALL DAY ALLERGY 10 MG CAPS 2013-07-31 00:00:00 No one daily. [facility] METROCREAM 0.75 % CREA 2013-05-01 00:00:00 Yes localy hs [facility] SYNTHROID 25 MCG TABS 2013-03-26 12:00:00 Yes TAKE 1 TABLET BY MOUTH DAILY [facility] SINGULAIR 10 MG TABS 2013-02-14 00:00:00 No TAKE 1 TABLET BY MOUTH DAILY [facility] HYZAAR 100-12.5 MG TABS 2013-02-14 00:00:00 Yes one daily [facility] COZAAR 50 MG TABS 2013-02-14 00:00:00 No TAKE 1 TABLET BY MOUTH DAILY [facility] SINGULAIR 10 MG TABS 2013-02-14 00:00:00 No TAKE 1 TABLET BY MOUTH DAILY [facility] COZAAR 50 MG TABS 2013-02-14 00:00:00 No TAKE 1 TABLET BY MOUTH DAILY [facility] HYZAAR 100-12.5 MG TABS 2013-02-14 00:00:00 Yes one daily [facility] COZAAR 50 MG TABS 2013-02-14 00:00:00 No TAKE 1 TABLET BY MOUTH DAILY [facility] Estrogens Conjugated (Premarin) 0.625 Mg Tab Estrogens Conjugated (Premarin) 0.625 Mg Tab Yes .3 Daily [facility] Levothyroxine Sodium 50 Mcg Tablet Levothyroxine Sodium 50 Mcg Tablet Yes 25 Daily [facility] Losartan Losartan Yes Daily [facility] Rosuvastatin Calcium (Crestor) 10 Mg Tab Rosuvastatin Calcium (Crestor) 10 Mg Tab Yes [address] [facility] [place] Aspirin 81 MG TABS Aspirin 81 MG TABS Yes M.A. [facility] Vitamin C CAPS Vitamin C CAPS Yes .A. [facility] Immunizations Ordered Immunization Name Filled Immunization Name Date Status Comments Source Fluzone High-Dose 0.5 ML Intramuscular Suspension Prefilled Syringe 2018-05-15 00:00:00 Completed [facility] Varicella Disease Unknown Completed [facility] Vital Signs Vital Name Observation Time Observation Value Comments Source Systolic blood pressure 2020-05-01 08:44:00 147 mm[Hg] Loca tion: RUE; Position: Sitting [facility] Diastolic blood pressure 2020-05-01 08:44:00 75 mm[Hg] Loc ation: RUE; Position: Sitting [facility] Heart Rate 2020-05-01 08:44:00 78 /min Location: R Brachial Artery; [facility] Systolic blood pressure 2020-05-01 08:41:00 157 mm[Hg] Loca tion: LUE; Position: Sitting [facility] Diastolic blood pressure 2020-05-01 08:41:00 61 mm[Hg] Loc ation: LUE; Position: Sitting [facility] Heart Rate 2020-05-01 08:41:00 81 /min Location: L Brachial Artery; [facility] Body height 2020-05-01 08:41:00 59 [in_us] [facility] Weight 2020-05-01 08:41:00 136.125 [lb_av] [facility] Body mass index (BMI) [Ratio] 2020-05-01 08:41:00 27.49 kg/m2 [facility] Body temperature 2020-05-01 08:41:00 97.8 [degF] Method: Temporal [facility] Respiratory rate 2020-05-01 08:41:00 16 /min [facility] Systolic blood pressure 2020-04-17 08:09:00 133 mm[Hg] Loca tion: LUE; Position: Sitting [facility] Diastolic blood pressure 2020-04-17 08:09:00 68 mm[Hg] Loc ation: LUE; Position: Sitting [facility] Body height 2020-04-17 08:09:00 59 [in_us] [facility] Weight 2020-04-17 08:09:00 134.5 [lb_av] [facility] Body mass index (BMI) [Ratio] 2020-04-17 08:09:00 27.17 kg/m2 [facility] Body temperature 2020-04-17 08:09:00 98.2 [degF] Method: Temporal [facility] Heart Rate 2020-04-17 08:09:00 99 /min Location: L Brachial Artery; [facility] Respiratory rate 2020-04-17 08:09:00 16 /min [facility] Body height 2020-02-18 09:30:00 59 [in_us] [facility] Weight 2020-02-18 09:30:00 130 [lb_av] [facility] Body mass index (BMI) [Ratio] 2020-02-18 09:30:00 26.26 kg/m2 [facility] Systolic blood pressure 2020-01-28 09:12:00 112 mm[Hg] Loca tion: LUE; Position: Sitting [facility] Diastolic blood pressure 2020-01-28 09:12:00 68 mm[Hg] Loc ation: LUE; Position: Sitting [facility] Body height 2020-01-28 09:12:00 58 [in_us] [facility] Weight 2020-01-28 09:12:00 133.3125 [lb_av] [facility] Body mass index (BMI) [Ratio] 2020-01-28 09:12:00 27.86 kg/m2 [facility] Body temperature 2020-01-28 09:12:00 98.2 [degF] Method: Temporal [facility] Heart Rate 2020-01-28 09:12:00 90 /min Location: L Brachial Artery; [facility] Respiratory rate 2020-01-28 09:12:00 16 /min [facility] BP Systolic 2019-04-10 15:16:00 135 mm[Hg] Location: KATE; Positi on: Sitting [facility] BP Diastolic 2019-04-10 15:16:00 67 mm[Hg] Location: RUY; [place] on: Sitting [facility] Height 2019-04-10 15:16:00 58 [in_us] [facility] Weight 2019-04-10 15:16:00 131 [lb_av] [facility] Body Mass Index Calculated 2019-04-10 15:16:00 27.38 kg/m2 [facility] Temperature 2019-04-10 15:16:00 97.8 [degF] Method: Temporal [facility] Heart Rate 2019-04-10 15:16:00 82 /min [facility] Respiration Rate 2019-04-10 15:16:00 12 /min [facility] Height 2014-07-18 20:04:42 [facility] Temperature Oral (F) 2014-07-18 20:04:42 97.9 F [facility] Heart Rate 2014-07-18 20:04:42 [facility] Weight 2014-07-18 20:04:42 [facility] Systolic (mm Hg) 2014-07-18 20:04:42 [facility] Diastolic (mm Hg) 2014-07-18 20:04:42 [facility] Weight 2014-02-08 15:19:11 [facility] Systolic (mm Hg) 2014-02-08 15:19:11 Liam [facility] [place] Diastolic (mm Hg) 2014-02-08 15:19:11 Mem [facility] Weight 2014-01-29 15:21:10 [facility] Temperature Oral (F) 2014-01-29 15:21:10 97.5 F [facility] Heart Rate 2014-01-29 15:21:10 [facility] Systolic (mm Hg) 2014-01-29 15:21:10 Liam rial Eric Diastolic (mm Hg) 2014-01-29 15:21:10 Mem [facility] Weight 2013-10-24 15:12:01 [facility] Temperature Oral (F) 2013-10-24 15:12:01 96.6 F [facility] Heart Rate 2013-10-24 15:12:01 [facility] Systolic (mm Hg) 2013-10-24 15:12:01 Liam rial Eric Diastolic (mm Hg) 2013-10-24 15:12:01 [facility] Weight 2013-07-31 21:13:40 [facility] Temperature Oral (F) 2013-07-31 21:13:40 98.1 F [facility] Heart Rate 2013-07-31 21:13:40 [facility] Systolic (mm Hg) 2013-07-31 21:13:40 Liam rial Eric Diastolic (mm Hg) 2013-07-31 21:13:40 [facility] Weight 2013-03-26 15:50:20 [facility] Temperature Oral (F) 2013-03-26 15:50:20 97.5 F [facility] Heart Rate 2013-03-26 15:50:20 [facility] Systolic (mm Hg) 2013-03-26 15:50:20 Liam rial Eric Diastolic (mm Hg) 2013-03-26 15:50:20 Mem orial [facility] Height 2013-03-26 15:50:20 [facility] Weight 2013-02-14 16:46:11 [facility] Heart Rate 2013-02-14 16:46:11 [facility] Systolic (mm Hg) 2013-02-14 16:46:11 Liam [facility] Diastolic (mm Hg) 2013-02-14 16:46:11 [facility] Procedures Procedure Date / Time Performed Performing Clinician [facility] e [Q] PTH, INTACT (ICMA) AND IONIZED CALCIUM 2020-05-15 00:00:00 [facility] [QL] URINALYSIS, COMPLETE W/REFLEX TO CULTURE 2020-05-15 00:00:0 0 [facility] [QL] CMP W/EGFR 2020-05-15 00:00:00 [place] [facility] EKG (In Office) 2020-05-01 00:00:00 [place] [facility] [QL] CMP W/EGFR 2020-05-01 00:00:00 [facility] [QL] CBC (INCLUDES DIFF/PLT) 2020-05-01 00:00:00 [facility] [QL] PROTHROMBIN TIME-INR 2020-05-01 00:00[facility]00 [facility] [[facility]] PARTIAL THROMBOPLASTIN TIME, ACTIVATED 2020-05-01 00:00:00 [facility] [QL] URINALYSIS, COMPLETE W/REFLEX TO CULTURE 2020-05-01 00:00:0 0 [facility] XRAY Chest 2 views [id number] 2020-05-01 00:00:00 [facility] [QL] TSH, 3RD GENERATION 2020-04-17 00:00:00 [facility] [QL] T4, FREE 2020-04-17 00:00:00 [facility] [QL] CMP W/EGFR 2020-04-17 00:00:00 [place] [facility] [QL] CBC (INCLUDES DIFF/PLT) 2020-04-17 00:00:00 [facility] [Q] LIPID PANEL WITH REFLEX TO DIRECT LDL 2020-04-17 00:00:00 [facility] MA Breast mammogram bilateral [id number] 2020-04-17 00:00:00 [facility] XRAY Hip bilateral w pelvis and both lat hips [id number] 2020-01-28 0 0:00:00 [facility] [QLH] TSH, 3RD GENERATION 2019-11-05 00:00:00 [facility] [QLH] T4, FREE 2019-11-05 00:00:00 [facility] [QLH] CMP W/EGFR 2019-11-05 00:00:00 [facility] [QLH] CBC (INCLUDES DIFF/PLT) 2019-11-05 00:00:00 [facility] [QH] LIPID PANEL WITH REFLEX TO DIRECT LDL 2019-11-05 00:00:00 [facility] COLONOSCOPY W/LESION REMOVAL 2017-12-09 00:00:00 MAGNOLIA BREWER [facility] [place] mammogram 2009-11-05 14:35:13 [facility] bone density 2008-02-07 14:33:43 [facility] levy History of Breast Surgery Lumpectomy [facility] History of Hysterectomy [facility] History [facility] History of Meniscus repair [facility] Plan of Care Planned Activity Planned Date Details Comments Source Future Appointment 2020-05-23 09:15:00 [facility] Start Date/Time End Date/Time Encounter Type Admission Type Attendi [facility] Care Department Encounter ID Source 2020-05-01 08:30:00 2020-05-01 08:30:00 Appointment; EFRA YOON A PRN BECK, SHERI, APRN [facility] [id number] [facility] 2020-04-17 08:00:00 2020-04-17 08:00:00 Appointment; EFRA YOON A PRN BECK, SHERI, APRN [facility], [address] [id number] [facility] 2020-02-18 09:30:00 2020-02-18 09:30:00 Appointment; ASHLEY MORRISON M.D. RADWAN, ZAYDE, M.D. [facility] [id number] [facility] 2020-01-28 09:00:00 2020-01-28 09:00:00 Appointment; EFRA YOON A PRN BECK, SHERI, APRN [facility], [address] [id number] [facility] 2019-11-05 10:00:00 2019-11-05 10:00:00 Appointment; EFRA YOON A PRN BECK, SHERI, APRN [facility], [address] [id number] [facility] 2019-10-29 09:00:00 2019-10-29 09:00:00 Appointment; JENNIE MEJIA A PRN ELLIS, MARK, APRN [facility] [id number] [facility] 2019-04-10 15:00:00 2019-04-10 15:00:00 Appointment; JENNIE Rasheed APRN xxJENNIE So APRN [facility], [address] [id number] [facility] 2018-02-27 14:00:00 2018-03-14 23:59:00 Discharged Recurring [facility] [id number] [facility] 2017-12-09 11:04:00 2017-12-09 11:04:00 Registered Surgical Day Care [facility] [id number] [facility] Results Test Description Test Time Test Comments Results Result Comments Source [QL] URINALYSIS, COMPLETE W/REFLEX TO CULTURE 2020-05-13 13: 10:00 Test Item COLOR; Normal (test code = 5778-6) YELLOW YELLOW N APPEARANCE (test code = APPEARANCE) CLEAR CLEAR N SPECIFIC GRAVITY; Normal (test code = 2965-2) 1.008 1.001-1. 035 N PH; Normal (test code = 2756-5) 7.0 5.0-8.0 N GLUCOSE; Normal (test code = 1547-9) NEGATIVE NEGATIVE N BILIRUBIN; Normal (test code = 16036-0) NEGATIVE NEGATIVE N KETONES; Normal (test code = 65316-5) NEGATIVE NEGATIVE N OCCULT BLOOD; Normal (test code = 71248-5) NEGATIVE NEGATIVE N PROTEIN; Normal (test code = 22885-8) NEGATIVE NEGATIVE N NITRITE (test code = NITRITE) NEGATIVE NEGATIVE N LEUKOCYTE ESTERASE (test code = LEUKOCYTE ESTERASE) 3+ NE GATIVE A WBC; Abnormal (test code = 6690-2) 10-20 < OR = 5 A RBC; Normal (test code = 789-8) NONE SEEN < OR = 2 N SQUAMOUS EPITHELIAL CELLS (test code = 50654-2) 0-5 < OR = 5 BACTERIA; Abnormal (test code = 630-4) FEW NONE SEEN A HYALINE CAST; Normal (test code = 48000-1) NONE SEEN NONE SEEN N [facility][Q] REFLEXIVE URINE [id number] 13:10:00* Test Item Value Reference Range Interpretation Comments REFLEXIVE URINE CULTURE (test code = REFLEXIVE URINE CULTURE) See B elow CULTURE INDICATED - RESULTS TO FOLLOW [facility][QL] CULTURE, URINE, [id number] 13:10:00* Test Item Value Reference Range Interpretation Comments CULTURE (test code = CULTURE) See Comment CULTURE, URINE, ROUTINE Micro Number: [id number] Test Status: Final Specimen Source: URINE Specimen Quality: Adequate Result: Growth of mixed santo was isolated, suggesting probable contamination. No further testing will be performed. If clinically indicated, recollection using a method to minimize contamination, with prompt transfer to Urine Culture Transport Tube, is recommended. [facility][QL] CMP [id number] 09:48:00* Test Item Value Reference Range Interpretation Comments GLUCOSE; Above High Threshold (test code = 1547-9) 108 mg/dl 65- 99 Fasting reference interval For someone without known diabetes, a glucose valuebetween 100 and 125 mg/dL is consistent withprediabetes and should be confirmed with afollow-up test. UREA NITROGEN (BUN) (test code = UREA NITROGEN (BUN)) 16 mg/dl 7-25 N CREATININE (test code = CREATININE) 0.90 mg/dl 0.60-0.88 For patients >49 years of age, the reference limitfor Creatinine is approximately 13% higher for peopleidentified as -Chinese. eGFR NON-AFR. ITALIAN (test code = eGFR NON-AFR. ITALIAN) 57 {ML/MIN/1.7} > OR = 60 eGFR (test code = eGFR ) 66 {ML/MIN/1.7} > OR = 60 N BUN/CREATININE RATIO (test code = BUN/CREATININE RATIO) 18 {CALC} 6-22 N SODIUM (test code = SODIUM) 135 mmol/L 135-146 N POTASSIUM (test code = POTASSIUM) 5.3 mmol/L 3.5-5.3 N CHLORIDE (test code = CHLORIDE) 97 mmol/L 98-110 CARBON DIOXIDE (test code = CARBON DIOXIDE) 30 mmol/L 20-32 N CALCIUM (test code = CALCIUM) 10.5 mg/dl 8.6-10.4 PROTEIN, TOTAL (test code = PROTEIN, TOTAL) 6.8 g/dl 6.1-8.1 N ALBUMIN (test code = ALBUMIN) 4.4 g/dl 3.6-5.1 N GLOBULIN (test code = GLOBULIN) 2.4 {G/DL CALC} 1.9-3.7 N ALBUMIN/GLOBULIN RATIO (test code = ALBUMIN/GLOBULIN RATIO) 1.8 {CALC} 1.0-2.5 N BILIRUBIN, TOTAL; Normal (test code = 04707-4) 1.1 mg/dl 0.2-1.2 N ALKALINE PHOSPHATASE (test code = ALKALINE PHOSPHATASE) 85 u/l 37-153 N AST; Normal (test code = 1916-6) 17 u/l 10-35 N ALT; Normal (test code = 1742-6) 11 u/l 6-29 N [facility][] PARTIAL THROMBOPLASTIN TIME, ACTIVATED 2020-05-12 09:48:00* Test Item Value Reference Range Interpretation Comments PARTIAL THROMBOPLASTIN TIME, ACTIVATED ( test code = PARTIAL THROMBOPLASTIN TIME, ACTIVATED) 25 {sec} 22-34 N This test has no t been validated for monitoringunfractionated heparin therapy. For testing thatis validated for this type of therapy, please referto the Heparin Anti-Xa assay (test code 53071). For additional information, please refer tohttp://xLander.ru.Numerate/faq/JQZ421(This link is being provided for informational/educational purposes only.) [facility][] PROTHROMBIN [id number]-[id number] 09:48:00* Test Item Value Reference Range Interpretation Comments INR (test code = INR) 0.9 N Refere nce Range 0.9-1.1Moderate-intensity Warfarin Therapy 2.0-3.0Higher-intensity Warfarin Therapy 3.0-4.0 PT (test code = PT) 9.9 {sec} 9.0-11.5 N For more information on this test, go to:http://xLander.ru.Hubspan/faq/WZB704 [facility][] CBC (INCLUDES DIFF/PLT)2020-05-12 09:48:00* Test Item Value Reference Range Interpretation Comments WHITE BLOOD CELL COUNT (test code = WHITE BLOOD CELL COUNT) 5.5 {Thousand/u} 3.8-10.8 N RED BLOOD CELL COUNT (test code = RED BLOOD CELL COUNT) 4.07 {Million/uL} 3.80-5.10 N HEMOGLOBIN; Normal (test code = 67735-2) 12.8 g/dl 11.7-15.5 N HEMATOCRIT; Normal (test code = 4544-3) 36.5 % 35.0-45.0 N MCV; Normal (test code = 787-2) 89.7 fL 80.0-100.0 N MCHC; Normal (test code = 89191-1) 35.1 g/dl 32.0-36.0 N RDW; Normal (test code = 788-0) 12.6 % 11.0-15.0 N PLATELET COUNT; Normal (test code = 777-3) 254 {Thousand/u} 140-400 N MPV; Normal (test code = 91270-2) 11.9 fL 7.5-12.5 N ABSOLUTE NEUTROPHILS (test code = ABSOLUTE NEUTROPHILS) 3729 {cells/uL} 3807-0603 N ABSOLUTE LYMPHOCYTES (test code = ABSOLUTE LYMPHOCYTES) 1106 {cells/uL} 850-3900 N ABSOLUTE MONOCYTES (test code = ABSOLUTE MONOCYTES) 627 {cells/uL} 200-950 N ABSOLUTE EOSINOPHILS (test code = ABSOLUTE EOSINOPHILS) 28 {cells/u L} 15-500 N ABSOLUTE BASOPHILS (test code = ABSOLUTE BASOPHILS) 11 {cells/uL} 0 -200 N NEUTROPHILS (test code = NEUTROPHILS) 67.8 % N LYMPHOCYTES (test code = LYMPHOCYTES) 20.1 % N MONOCYTES; Normal (test code = 52085-2) 11.4 % N EOSINOPHILS; Normal (test code = 25569-3) 0.5 % N BASOPHILS; Normal (test code = 45200-7) 0.2 % N [facility][QL] HEMOGLOBIN [id number] 09:48:00* Test Item Value Reference Range Interpretation Comments HEMOGLOBIN A1c; Normal (test code = 4548-4) 5.6 {% of total} <5.7 N For the purpose of screening for the presence ofdiabetes: <5.7% Consistent with the absence of diabetes5.7-6.4% Consistent with increased risk for diabetes (prediabetes)> or =6.5% Consistent with diabetes This assay result is consistent with a decreased riskof diabetes. Currently, no consensus exists regarding use ofhemoglobin A1c for diagnosis of diabetes in children. According to [place] Diabetes Association (ADA)guidelines, hemoglobin A1c <7.0% represents optimalcontrol in non- diabetic patients. Differentmetrics may apply to specific patient populations. Standards of Medical Care in Diabetes(ADA). [facility] Chest 2 views [id number] 14:13:00EXAM: XR CHEST 2 VIEWSDATE: 05/01/2020 14:08 CDTINDICATION: - Z01.818 Encounter for other preprocedural examination; M25.551 Pain in right hipCOMPARISON: Chest radiograph 10/17/2015TECHNIQUE: PA and lateral chest radiographs.FINDINGS:Lines, tubes and hardware: Surgical clips in the right upper quadrant likelyfrom prior cholecystectomy.Lungs and pleura: No focal consolidation, pleural effusion or pneumothorax.Pulmonary vascularity is normal.Heart and mediastinum: The heart si ze is normal. Vascular calcifications arepresent at the aorta. Bones: No acute b chon abnormality is identified. Degenerative changes in thespine.IMPRESSION: No acute cardiopulmonary abnormality.--Read by: Malick Valdez MDDictated Date/t rick: 05/01/20 14:30Electronically Signed by: Malick Valdez MD 05/01/2014:31FINAL REPORTUnBlue [facility], Inc. PhysiciansXRAY Hip bilateral w pelvis and both lat hips [id number] 15:33:00EXAM: Hip bilat w pelvis and both lat hips DXDATE: 02/06/2020 3:33 PM CDT.INDICATION: - M25.551 Pain in right hipCOMPARISON: Abdominal x-ray 07/04/2016, CT abdomen pelvis 08/29/2018TECHNIQUE: 2 views of the bilateral hip including the pel vis.FINDINGS:No acute fracture or malalignment is identified. There is moderate right hipjoint space narrowing with extensive subchondral sclerosis and subchond ral cystformation. There is also osteophyte formation.Mild left hip joint space narrowing with subchondral sclerosis and osteophyteformation. Enthesopathic grossman ges of the bilateral greater trochanters.Degenerative changes of the lumbar spin e.No acute soft tissue abnormality is identified.IMPRESSION:Moderate to severe r ight hip degenerative changes, mildly progressed [id number]. Also consider avascu lar necrosis.Mild left hip degenerative changes.--Read by: Angela Chavez DDictated Date/time: 02/06/20 17:42Electronically Signed by: Angela Chavez MD 02/05/2017:45FINAL REPORTUnBlue Mountain Hospital, Inc. Physicians White Blood Vltho1310-49-07 13:49:00* Test Item Value Reference Range Interpretation Comments White Blood Count (test code = 6690-2) 4.87 4.8-10.8 [facility] Lflnw1970-93-33 13:49:00* Test Item Value Reference Range Interpretation Comments Red Blood Count (test code = 789-8) 4.00 3.6-5.1 [facility] CenterHemoglobin2018-04-25 13:49:00* Test Item Value Reference Range Interpretation Comments Hemoglobin (test code = 68408-5) 12.5 12.0-16.0 [facility] CenterHematocrit2018-04-25 13:49:00* Test Item Value Reference Range Interpretation Comments Hematocrit (test code = 4544-3) 36.4 34.2-44.1 [facility] CenterMean Corpuscular Tdctbw1432-31-83 13:49:00* Test Item Value Reference Range Interpretation Comments Mean Corpuscular Volume (test code = 787-2) 91.0 81-99 [facility] CenterMean Corpuscular Tkpwptiqpk6434-79-78 13:49:00* Test Item Value Reference Range Interpretation Comments Mean Corpuscular Hemoglobin (test code = 785-6) 31.3 28-32 [facility] CenterMean Corpuscular Hemoglobin Concent 2017-12-07 13:49:00* Test Item Value Reference Range Interpretation Comments Mean Corpuscular Hemoglobin Concent (test code = 786-4) 34.3 31-35 [facility] CenterRed Cell Distribution Uzrev6053-36-38 13:49:00* Test Item Value Reference Range Interpretation Comments Red Cell Distribution Width (test code = 21635-2) 12.0 11.7 -14.4 [facility] CenterPlatelet Uhoxw8532-99-84 13:49:00* Test Item Value Reference Range Interpretation Comments Platelet Count (test code = 777-3) 214 140-360 [facility] CenterNeutrophils (%) (Auto)2017-12-07 13:49:00 * Test Item Value Reference Range Interpretation Comments Neutrophils (%) (Auto) (test code = 65601-2) 60.0 38.7-80.0 [facility] CenterLymphocytes (%) (Auto)2017-12-07 13:49:00 * Test Item Value Reference Range Interpretation Comments Lymphocytes (%) (Auto) (test code = 736-9) 27.5 18.0-39.1 [facility] CenterMonocytes (%) (Auto)2017-12-07 13:49:00* Test Item Value Reference Range Interpretation Comments Monocytes (%) (Auto) (test code = 5905-5) 11.5 4.4-11.3 H [facility] CenterEosinophils (%) (Auto)2017-12-07 13:49:00 * Test Item Value Reference Range Interpretation Comments Eosinophils (%) (Auto) (test code = 713-8) 0.6 0.0-6.0 [facility] CenterBasophils (%) (Auto)2017-12-07 13:49:00* Test Item Value Reference Range Interpretation Comments Basophils (%) (Auto) (test code = 706-2) 0.2 0.0-1.0 [facility] CenterIM GRANULOCYTES %2017-12-07 13:49:00* Test Item Value Reference Range Interpretation Comments IM GRANULOCYTES % (test code = IM GRANULOCYTES %) 0.2 0.0- 1.0 [facility] CenterNeutrophils # (Auto)2017-12-07 13:49:00* Test Item Value Reference Range Interpretation Comments Neutrophils # (Auto) (test code = 751-8) 2.9 2.1-6.9 [facility] CenterLymphocytes # (Auto)2017-12-07 13:49:00* Test Item Value Reference Range Interpretation Comments Lymphocytes # (Auto) (test code = 42505-0) 1.3 1.0-3.2 [facility] CenterMonocytes # (Auto)2017-12-07 13:49:00* Test Item Value Reference Range Interpretation Comments Monocytes # (Auto) (test code = 742-7) 0.6 0.2-0.8 [facility] CenterEosinophils # (Auto)2017-12-07 13:49:00* Test Item Value Reference Range Interpretation Comments Eosinophils # (Auto) (test code = 711-2) 0.0 0.0-0.4 [facility] CenterBasophils # (Auto)2017-12-07 13:49:00* Test Item Value Reference Range Interpretation Comments Basophils # (Auto) (test code = 704-7) 0.0 0.0-0.1 [facility] CenterAbsolute Immature Granulocyte (auto 2017-12-07 13:49:00* Test Item Value Reference Range Interpretation Comments Absolute Immature Granulocyte (auto (elia t code = Absolute Immature Granulocyte (auto) 0.01 0-0.1 [facility] CenterChemistry2014-03-12 16:10:005.7[facility] TwgvzfgEkxiercujd8700-38-78 16:10:0013.3[facility] EdagrvaZrydgwrfku4328-91-42 16:10:0039.8[facility] LonubxjGpidhkzfja3485-93-06 16:10:01490 K/CMMMemorial WrmtdvvTvmkmqmjs4847-90-54 17:00:005.7[facility] DvdmpzhLihefkdnl6529-00-40 17:00:76457Hgnqdqlp CcphyscXagcptgsq8267-01-16 17:00:95698Fkdixgww [place] Njposwgbq4001-44-44 17:00:005.7[facility] LpxhxcbJapnxqfob9750-96-14 17:00:98374 [facility] VxmsmmoNhpjttxvr4084-77-33 17:00:68648Qxnnqdal HermannChemistry 2013-03-26 17:00:0068[facility] LgwqvfxJrkdvsbhd9314-24-08 17:00:0093[facility] FspqrlsClqdhipqs5843-94-28 17:00:0016[facility] GistkhkQkacomxml2646-58-99 17:00:001.0[facility] FhuezvsYwldgoppl0101-83-29 17:00:16076 MEQ/LMemorial [place]ene Jgondaxmd6199-67-03 17:00:004.3 MEQ/LMemorial ThuwxsbXgdlmsrku3331-55-35 17:00:009.3[facility] VkahqwsRvvxatnao8368-32-78 17:00:003.160[facility] [place] Lnukkojfv2178-36-99 00:10:005.7[facility] HospitalriOd[facility] Medical CenterNbdnarjHwxqplmxa8485-86-23 00:10:005.7 [facility]
--- NOTE | 2020-05-20 12:33 | Diagnostic Imaging Report ---
Pelvic radiograph-1 view History: Postoperative. Comparison: None. Findings: Status post right total hip arthroplasty with prosthetic components in anatomic alignment. Overlying subcutaneous emphysema and surgical skin mihir are present. Hardware appears intact. There are moderate degenerative changes in the left hip. No evidence of acute fracture. IMPRESSION: Status post right total hip arthroplasty as above. Signed by: Dr. Kneyon Chakraborty MD on 05/20/2020 12:30 PM
[2020-05-20] MEDS ORDERED: EPHEDRINE SULFATE INJ 50 MG/ML VIAL ONE (12:54)
[2020-05-20 12:59] VITALS: BP 127/90
--- NOTE | 2020-05-20 13:04 | NUR ---
Received report from CARLOTTA Guzman in PACU at 1230. Patient arrived at 1245. Patient oriented to room, procedures, and plan of care. Patient is AOx3 and voices no concerns. Patient called daughter, Kasey, to let her know she was here. Will continue to monitor.
[2020-05-20] MEDS ORDERED: FENTANYL CITRATE/PF 100MCG/2 ML INJ ONE (13:18)
[2020-05-20] MEDS ORDERED: MIDAZOLAM HCL 2 MG/2 ML VIAL ONE (13:18)
--- NOTE | 2020-05-20 13:42 | NUR ---
DR SPARKS OFFICE PREARRANGED FOLLOWING DISCHARGE PLAN OF:[facility] [phone] [facility] 3 IN ONE COMMODE, CPM AND ROLLING WALKER WITH WHEELS. PROVIDED BY [employer] [facility] WILL DELIVER TO ROOM PAULSON SIGNED AND ON CHART COPY LEFT WITH PATIENT GAVE CARD FOR QUESTIONS AND OR CONCERNS.
--- NOTE | 2020-05-20 13:48 | Operative Report ---
DATE OF PROCEDURE: 05/20/2020 SURGEON: Reji Sims MD SCOUT SNIPER: Yared Hathaway PA-C. PREOPERATIVE DIAGNOSIS: Osteoarthritis, right hip. POSTOPERATIVE DIAGNOSIS: Osteoarthritis, right hip. PROCEDURE: Right total hip arthroplasty. INDICATIONS: The patient is an active and healthy 89-year-old lady, who has end-stage arthritis of her right hip. She has failed conservative management and feels that the right hip pain is severely limiting her activities of daily living. She would like to proceed with a right total hip replacement. The risks and benefits have been discussed. All of her questions have been answered. She states she understands and wishes to proceed. PROCEDURE IN DETAIL: The patient was brought to the operating room and given a spinal anesthetic. She received prophylactic antibiotics and tranexamic acid in the holding area. She was positioned in the left lateral decubitus position. Her right hip was prepped and draped in a sterile manner. A preoperative time-out was performed. A posterior approach was made to the right hip. Hemostasis was obtained with electrocautery. A self-retaining Charnley retractor was placed. The posterior capsule was carefully exposed. She was notably contracted and had no internal rotation. A portion of the short external rotators and the capsule were released. The hip was brought out into flexion and internal rotation to dislocate the hip. Complete loss of articular cartilage of the femoral head was noted. An oscillating saw was used to resect the femoral head. Acetabular retractors were placed. Remnants of the labrum were excised with a long-handled knife. The true floor of the acetabulum was established with a 46 mm reamer. The socket was then sequentially reamed up to 49 mm. We stopped because this accomplished bleeding hemispherical cancellous bone. The hip was thoroughly irrigated with a shower tip pulsatile lavage. A Tervor/Biomet OsteoTi 50 mm outer diameter socket was then impacted into place. Good fixation was obtained. Fixation was augmented with a single 20 mm screw placed into the ilium. A highly cross-linked polyethylene liner was then seated into place. Care was taken to make sure that there was no evidence of soft tissue interposition. The socket was packed with a moistly soaked lap sponge. Attention was directed towards the proximal femur. A box cutting osteotome and taper pin reamer were used to establish entry to the femoral canal. The Trevor/Biomet Taperloc broaches were impacted. A size 6 stem had good canal fill and rotational stability for trial reduction. This demonstrated good range of motion, stability and episcopal of limb length. The trial implants were then all removed. The femoral canal was thoroughly irrigated with a pulsatile lavage. A 100 mL premixed pericapsular HUNTER injection was placed into the surrounding soft tissue. The Taperloc stem was impacted into place. A standard 36 mm ceramic head and neck were seated onto the stem. A final reduction was performed. The posterior capsule was repaired with #2 Ethibond. The piriformis remained intact. A 500 mg of vancomycin powder were sprinkled into the wound. The fascia was closed with interrupted #2 Ethibond. The skin was closed with subcuticular Vicryl and mihir. A sterile Aquacel bandage was applied. The patient was returned to the supine position and transported to the recovery room in stable condition. Estimated blood loss was 50 mL. At the end of the procedure, all needle and sponge counts were correct. Reji Sims MD DR/ARELI /[id number]
[2020-05-20 13:49] VITALS: BP 127/90
[2020-05-20] MEDS ORDERED: ACETAMINOPHEN 1000 MG/100 ML IV PRN (14:00)
[2020-05-20 16:00] VITALS: BP 120/6
[2020-05-20] MEDS ORDERED: SODIUM CHLORIDE 0.9% 50ML 50 ML ONE (16:10)
[2020-05-20] MEDS: CELECOXIB 100 MG CAP PO SCH (16:12)
[2020-05-20] MEDS: CLINDAMYCIN PHOS 900MG/ 50ML 50 ML IV SCH (16:12)
[2020-05-20] MEDS: ASPIRIN 325 MG TAB PO SCH (16:12)
[2020-05-20 20:00] VITALS: BP 133/53
--- NOTE | 2020-05-20 20:00 | NUR ---
INITIAL ASSESSMENT COMPLETE, CALL LIGHT IN REACH, RIGHT HIP WITH DRESSING CDI, ABDUCTOR PILLOW INBETWEEN LEGS, MELA HOSE ON, FOOT PUMPS ON, IV INTACT, NO DISTRESS NOTED, DENIES PAIN TO RIGHT HIP, VS WNL
[2020-05-20] MEDS: HYDROCODONE/APAP 5MG-325MG TAB PO PRN (20:12)
[2020-05-20] MEDS ORDERED: ZOLPIDEM TARTRATE 5 MG TAB PO PRN (21:00)
[2020-05-21] VITALS: BP 130/58
[2020-05-21] MEDS: CLINDAMYCIN PHOS 900MG/ 50ML 50 ML IV SCH ×2 (02:00→09:07)
[2020-05-21] MEDS: HYDROCODONE/APAP 5MG-325MG TAB PO PRN ×3 (03:27→12:00)
[2020-05-21 04:00] VITALS: BP 147/50
--- NOTE | 2020-05-21 04:00 | NUR ---
dr lopez here to see pt, pt voids on bedpan, no distress noted, call light in reach
[2020-05-21 04:50] LABS: HEMATOCRIT 27.5 % (34.2-44.1); HEMOGLOBIN 9.9 g/dL (12.0-16.0)
--- NOTE | 2020-05-21 05:06 | Consultation ---
DATE OF CONSULTATION: HISTORY OF PRESENT ILLNESS: The patient is status post right hip arthroplasty for end-stage osteoarthritis. She is doing very well postoperatively with minimal pain. She denies any chest pain, fever, chills, nausea, vomiting, headache, shortness of breath, or dizziness on review of systems. PAST MEDICAL HISTORY: Significant for hypertension, hypothyroidism, and hyperlipidemia. MEDICATIONS: See MAR. ALLERGIES: CEPHALEXIN, OXYCODONE, AND CODEINE. SOCIAL HISTORY: She is , lives at home. Nonsmoker, nondrinker. FAMILY HISTORY: Hypertension. PHYSICAL EXAMINATION: VITAL SIGNS: Temperature 97.5, pulse 69, blood pressure 130/58, sats 100% on room air. GENERAL: No apparent distress, lying in bed. LUNGS: Clear to auscultation bilaterally. ABDOMEN: Good bowel sounds. Soft, nontender. CARDIOVASCULAR: Regular rate and rhythm. EXTREMITIES: No clubbing or cyanosis. NEUROLOGIC: Nonfocal. NECK: No lymphadenopathy. ASSESSMENT/PLAN: 1. Anemia. Check a CBC. 2. Hypertension. We will continue to monitor. 3. Hypothyroidism. We will continue her thyroid medicine. 4. Hyperlipidemia. We will restart her cholesterol medicine. 5. Left hip pain. We will continue with physical therapy and ambulation today. Please see hospital chart for full details. MD NORRIS Stern/ARELI /[id number]
--- NOTE | 2020-05-21 07:00 | NUR ---
RECEIVED PATIENT RESTING IN BED NO S/S OF DISTRESS. BED LOW, WHEELS LOCKED, SIDE RAILS X2. CALL LIGHT IN REACH WILL CONTINUE TO MONITOR PATIENT.
[2020-05-21] MEDS ORDERED: LEVOTHYROXINE SODIUM 25 MCG TABLET PO SCH (07:30)
[2020-05-21] MEDS: ASPIRIN 325 MG TAB PO SCH (08:00)
[2020-05-21] MEDS: CELECOXIB 100 MG CAP PO SCH (08:00)
--- NOTE | 2020-05-21 08:23 | NUR ---
PT IS GOING TO [facility] HOME [address] [facility], [id number] CALLED AND SPOKE WITH [facility] [employer] AND VERIFIED THEY HAD THAT ADDRESS AND IS WHERE THEY WILL BE SEEING PT OF TOMORROW.
[2020-05-21 08:50] VITALS: BP 131/51
[2020-05-21] MEDS ORDERED: SIMVASTATIN 40 MG TAB PO SCH (09:00)
[2020-05-21 09:09] VITALS: BP 131/51
--- NOTE | 2020-05-21 11:25 | NUR ---
REMOVED PATIENTS IV. CATHETER TIP INTACT AND PRESSURE DRESSING APPLIED.
--- NOTE | 2020-05-21 12:07 | NUR ---
PATIENT DISCHARGED FROM FACILITY IN STABLE CONDITION. GATHERED ALL PERSONAL BELONGINGS, DISCHARGE INSTRUCTIONS AND FOLLOW UP INFORMATION. LEFT UNIT IN WHEELCHAIR AND WENT HOME VIA PRIVATE AUTO.
[2020-05-21] MEDS ORDERED: ONDANSETRON HCL 4 MG ORAL DISINTEGRATING TAB PO PRN (12:15)
[2020-05-21] MEDS ORDERED: CELECOXIB 200 MG CAP PO SCH (17:00)
== END 2020-05-21 12:07 | disposition home or self-care (01) ==
LOC: OR 09:17 → PACU V 11:45 → MED/SURG 12:43
PROVIDERS: ADMIT Specialist; ATTEND Specialist
DX: M16.11 Unilateral primary osteoarthritis, right hip (principal); I10 Essential (primary) hypertension; E78.00 Pure hypercholesterolemia, unspecified; Z90.49 Acquired absence of other specified parts of digestive tract; Z88.5 Allergy status to narcotic agent; Z88.8 Allergy status to other drugs, medicaments and biological substances; D64.9 Anemia, unspecified; E03.9 Hypothyroidism, unspecified; E78.5 Hyperlipidemia, unspecified; Z11.59 Encounter for screening for other viral diseases
CPT/HCPCS: 27130; 36415 ×2; 72170; 84132; 85014; 85018; 86850; 86900; 86920; 97116 ×2; 97162; 97530; C1713; C1734; C1776; G0378 ×2; J0171; J1100; J1885; J2250; J2795; J3010; J3370; J7040; U0002